=== PATIENT | female | born 1970 | race Caucasian/White ===

== ENCOUNTER → 2021-03-13 | Outpatient (CLI) | payer BC ==
[2021-03-13 16:06] VITALS: BP 169/94; PULSE 93; RESP 18; TEMP 98.2; BMI 39.8
--- NOTE | 2021-03-13 16:15 | P.HPBAR ---
Bariatric H&P - History & Physicial H&P Date: 03/13/21 History & Physicial: Visit/CC: initial visit Patient initial contact: Initial weight: Initial weight in pounds: Height: 5 ft 4.25 in Initial BMI: Last weight: Current weight: 106.141 kg Current weight in pounds: 234.00 Current BMI: 39.8 [place] body weight (based on NIH guidelines): 54.998 kg Excess body weight loss: The patient is a 50 year-old F who presents for Bariatric Assessment. DATE OF SERVICE: 03/13/2021 REASON FOR CONSULTATION: Initial bariatric evaluation. HISTORY OF PRESENT ILLNESS: Lindsey Celaya is a 50-year-old female who comes with lifelong morbid obesity. She comes in for weight loss surgery. She reports gastroesophageal reflux disease including over the counter medications for at least 1 year. Her medications help but her symptoms recur after stopping her medications. She has tried Weight watchers in 1999. She had the lap band by Dr. Be that was removed in 2018 with her gallbladder. She developed reflux disease after her band. She did not have reflux before the band. Her lowest hemant ght with the band was 180 pounds. Highest weight was 245 pounds. All of her family members have trouble with her weight and obesity. She is due for her colonoscopy for screening. She has not had an upper endoscopy. She denies colon cancer or polyps in her family. She ambulates with a cane and reports nerve damage of the knees with weakness. She had transverse myelitis, 1995. She denies easy bruising or bleeding. She denies DVTs. No inflammatory bowel disease in the family. No report of food allergies. At height of 5 feet 4.25 inches, her ideal body weight is 144 pounds. Her highest weight was 245 pounds, BMI 41.8. She comes in 234 pounds. Her body mass index is 39.9. She is 90 pounds overweight. PAST MEDICAL HISTORY: 1. Morbid obesity due to excess calories 2. Body mass index of 41.8, initial 3. Gastroesophageal reflux disease 4. Hypertensive heart disease 5. Transverse myelitis 6. Chronic kidney disease, stage 2 PAST SURGICAL HISTORY: 1. Bilateral foot surgery 2. Right ankle surgery 3. Lap band placement, 1999 with removal 2018 4. Fatty tumor removal 5. Cholecystectomy HOME MEDICATIONS: Home Medications Medication Instructions Recorded Confirmed Esomeprazole Magnesium [NexIUM] 20 mg PO HS 01/09/21 05/01/21 Lisinopril [Prinivil] 40 mg PO HS 01/09/21 05/01/21 Multivitamins, Thera [Multivitamin 1 tab PO DAILY 01/09/21 05/01/21 (formulary)] Zinc 50 mg PO DAILY 03/13/21 05/01/21 amLODIPine [Norvasc] 5 mg PO HS 03/13/21 05/01/21 Cholecalciferol [Vitamin D3 (25 25 mcg PO DAILY 04/24/21 05/01/21 Mcg = 1000 Iu)] Previous Rx's Medication Instructions Recorded Omeprazole [PriLOSEC] 40 mg PO DAILY #14 cap 04/29/21 ALLERGIES: Allergies Allergy/AdvReac Type Severity Reaction Status Date / Time Tetanus Vaccines and Toxoid Allergy Anaphylaxis Verified 05/01/21 14:08 SOCIAL HISTORY: Denies past tobacco use. FAMILY HISTORY: No family history of ulcerative colitis disease or Crohn's disease. Family history of morbid obesity. No lupus in the family. No reports of stomach or esophageal cancer. REVIEW OF ORGAN SYSTEMS: CONSTITUTIONAL: At height of 5 feet 4.25 inches, her ideal body weight is 144 pounds. Her highest weight was 245 pounds, BMI 41.8. She comes in 234 pounds. Her body mass index is 39.9. She is 90 pounds overweight. HEENT: Denies any active troubles with vision or hearing. ENDOCRINE: Denies diabetes. No hypothyroidism. CARDIOVASCULAR: Denies past reports of palpitations or heart attacks or chest pain. Has hypertensive heart disease. RESPIRATORY: Denies chronic obstructive pulmonary disease. GASTROINTESTINAL: Denies any bright red blood per rectum. No diarrhea. No constipation. Has gastroesophageal reflux disease. GENITOURINARY: Denies bladder urgency. No recent blood in urine MUSCULOSKELETAL: Has lower back pain and joint pain. NEURO: No headaches. No seizure disorders. Has lower extremity weakness. PSYCH: Denies depression. No suicidal ideation. RHEUMATOLOGIC: No lupus. No rheumatoid arthritis. HEMATOLOGIC: Denies any abnormal bleeding or bruising. SKIN: No rash. No skin cancer. PHYSICAL EXAM: VITAL SIGNS: Height 5 foot 4.25 inches, weight 234 pounds. BMI 39.9 Vital Signs Temp 98.2 F 03/13/21 15:42 Pulse 93 03/13/21 15:42 Resp 18 03/13/21 15:42 BP 169/94 03/13/21 15:42 Pulse Ox GENERAL: Well-developed in no acute distress. HEENT: No scleral icterus. Extraocular movements grossly intact. Hears conversational speech. No nasal drainage. NECK: Supple without lymphadenopathy. CHEST: Nonlabored respirations with equal bilateral excursions. CARDIOVASCULAR: Regular rate and regular rhythm. Distal 2+ pulses. ABDOMEN: Obese, soft, nontender, nondistended. MUSCULOSKELETAL: No clubbing, cyanosis. NEURO: No focal or lateralizing signs. Cranial nerves 2 through 12 grossly within normal limits. PSYCH: Appropriate affect. Alert and oriented to person, place and time. SKIN: Good skin turgor. Well perfused. ASSESSMENT: 1. Morbid obesity due to excess calories 2. Body mass index of 41.8, initial to 39.9 3. Gastroesophageal reflux disease 4. Hypertensive heart disease 5. Transverse myelitis 6. Chronic kidney disease, stage 2 7. Screening for malignant colon polyps PLAN: 1. Surgical options including gastric bypass, sleeve gastrectomy were described in detail. Alternatives such as gastric balloon including duodenal switch were described. She is looking into the gastric bypass. 2. The [place] bariatric surgical collaborative data and outcomes calculator were described with surgical options. 3. Recommend a bariatric metabolic panel to evaluate for micro- including macronutrient deficiencies. 4. For history of daytime somnolence, recommend evaluation and treatment for sleep apnea. 5. Dietary surveillance and counseling was reviewed. Increased protein intake over 65 grams daily advised. 6. Will need cardiac risk assessment. 7. Recommend medical risk assessment. 8. Psych assessment per insurance guidelines. 9. Recommend upper endoscopy. 10. Recommend 12-lead EKG. 11. Recommend esophagram 12. Recommend urine drug screen 13. Recommend colonoscopy for screening. Thank you for this consultation. Past Medical History Past Medical History: GERD/Reflux, Hypertension, Osteoarthritis (OA) Additional Past Medical History / Comment(s): transverse mylitis. nerve damage. weakness. gait disturbances. uses a walker. chronic intermittent catheter use. CKD stage 2 History of Any Multi-Drug Resistant Organisms: None Reported Past Surgical History: Bariatric Surgery, Cholecystectomy, Orthopedic Surgery Additional Past Surgical History / Comment(s): bilateral foot surgery right ankle surgery lap band 2000 lap band removal 2019. jaw surgery. fatty tumor removal right wrist. Past Anesthesia/Blood Transfusion Reactions: No Reported Reaction Past Psychological History: No Psychological Hx Reported Smoking Status: Never smoker Past Alcohol Use History: Rare Past Drug Use History: None Reported Surgical - Exam Vital Signs Temp Pulse Resp BP 98.2 F 93 18 169/94 03/13/21 15:42 03/13/21 15:42 03/13/21 15:42 03/13/21 15:42 Bariatric Checklist Checklist: Plan: Checklist: EGD: 1. Hiatal hernia: 2. H. Pylori: HgbA1c: Vitamin D: Smoking: Primary care physician referral: Dr. Smith ([facility]) Psychiatry clearance: Cardiology clearance: Sleep study: Diet journal: VTE risk score: VTE risk level: Rehab needs at discharge:
== END ==
LOC: BARWHC3 14:44
PROVIDERS: ATTEND Surgery Plastic and Reconstructive Surgery
DX: E66.01 Morbid (severe) obesity due to excess calories (principal); K21.9 Gastro-esophageal reflux disease without esophagitis; I11.9 Hypertensive heart disease without heart failure; N18.2 Chronic kidney disease, stage 2 (mild); G37.3 Acute transverse myelitis in demyelinating disease of central nervous system; Z12.11 Encounter for screening for malignant neoplasm of colon; M19.90 Unspecified osteoarthritis, unspecified site; Z68.39 Body mass index [BMI] 39.0-39.9, adult; Z88.7 Allergy status to serum and vaccine
CPT/HCPCS: 99203

== ENCOUNTER → 2021-03-15 | Outpatient (CLI) | payer BC ==
[2021-03-15 23:46] LABS: HCT 36.5 % (37.2-46.3); HGB 11.7 g/dL (12.0-15.0); MCH 30.5 pg (27.0-32.0); MCHC 32.1 g/dL (32.0-37.0); MCV 95.3 fL (80.0-97.0); Mean Platelet Volume 11.7 fL (9.5-12.2); Platelet Count 345 X 10*3/uL (140-440); RBC 3.83 X 10*6/uL (4.10-5.20); RDW 13.2 % (11.5-14.5)
[2021-03-16 01:52] LABS: % Iron Saturation 14.33 (12.00-45.00); ALT 25 U/L (8-44); AST 17 U/L (13-35); African American GFR (CKD) 99.6 (60.0-200.0); Albumin/Globulin Ratio 2.04 (1.60-3.17); Alkaline Phosphatase 100 U/L (41-126); BUN/Creat Ratio 31.25 Ratio (12.00-20.00); Calcium 9.6 mg/dL (8.7-10.3); Carbon Dioxide 27.5 mmol/L (21.6-31.8); Chloride 109 mmol/L (96-109); Chol/HDL Ratio 3.16; Cholesterol 180 mg/dL (0-200); Globulin 2.4 g/dL (1.6-3.3); Glucose 137 mg/dL (70-110); Iron 51 ug/dL (50-170); LDL Cholesterol,Calculated 91.8 mg/dL (0.0-131.0); Magnesium 1.9 mg/dL (1.5-2.4); Phosphorus 4.1 mg/dL (2.4-5.1); Sodium 143 mmol/L (135-145); Total Bilirubin 0.4 mg/dL (0.3-1.2); Total Iron Binding Capacity 356 ug/dL (228-460); Total Protein 7.3 g/dL (6.2-8.2)
[2021-03-16 02:03] LABS: Ferritin 51.1 ng/mL (10.0-291.0)
[2021-03-16 02:18] LABS: INR 0.89 (0.90-1.11); Partial Thromboplastin Time 22.8 sec (23.5-31.0); Prothrombin Time 9.8 sec (9.9-11.9)
[2021-03-16 02:21] LABS: Folate, Serum >24.0 ng/mL
[2021-03-16 04:19] LABS: Hemoglobin A1C 5.5 % (4.0-6.0)
== END | disposition home or self-care (01) ==
LOC: LABWHC1 15:38
PROVIDERS: ATTEND Surgery Plastic and Reconstructive Surgery
DX: E66.01 Morbid (severe) obesity due to excess calories (principal); E89.1 Postprocedural hypoinsulinemia; D50.8 Other iron deficiency anemias; K90.89 Other intestinal malabsorption; E55.9 Vitamin D deficiency, unspecified; K74.1 Hepatic sclerosis; N19 Unspecified kidney failure; K50.90 Crohn's disease, unspecified, without complications; Z98.84 Bariatric surgery status; Z71.51 Drug abuse counseling and surveillance of drug abuser
CPT/HCPCS: 36415; 80053; 80061; 80323; 82306; 82525; 82607; 82728; 82746; 83036; 83540; 83550; 83735; 83970; 84100; 84134; 84255; 84425; 84443; 84590; 84630; 85027; 85610; 85730

== ENCOUNTER 2021-04-29 07:23 | Day surgery (SDC) | payer BC ==
[2021-04-24 13:35] VITALS: BMI 39.9
[~2021-04-29 07:23] MED LIST: LACTATED RINGERS 1,000 ML IV SCH
--- NOTE | 2021-04-29 07:42 | P.GSHP ---
History of Present Illness H&P Date: 04/29/21 CHIEF COMPLAINT: GERD HISTORY OF PRESENT ILLNESS: The patient is a 50-year-old female who presents reports gastroesophageal reflux disease. Upper endoscopy was offered for further evaluation and management. PAST MEDICAL HISTORY: Please see list. PAST SURGICAL HISTORY: Please see list. MEDICATIONS: Please see list. ALLERGIES: Please see list. SOCIAL HISTORY: No illicit drug use FAMILY HISTORY: No reports of Crohn disease or ulcerative colitis. REVIEW OF ORGAN SYSTEMS: CONSTITUTIONAL: No reports of fevers or chills. GI: Denies any blood in stools or constipation. PHYSICAL EXAM: VITAL SIGNS: Stable GENERAL: Well-developed and pleasant in no acute distress. HEENT: No scleral icterus. Extraocular movements grossly intact. Moist buccal mucosa. NECK: Supple without lymphadenopathy. CHEST: Unlabored respirations. Equal bilateral excursions. CARDIOVASCULAR: Regular rate and rhythm. Distal 2+ pulses. ABDOMEN: Soft, nondistended. MUSCULOSKELETAL: No clubbing, cyanosis, or edema. ASSESSMENT: 1. Gastroesophageal reflux disease PLAN: 1. Recommend proceeding with an upper endoscopy Past Medical History Past Medical History: GERD/Reflux, Hypertension, Osteoarthritis (OA) Additional Past Medical History / Comment(s): transverse mylitis. nerve damage. weakness. gait disturbances. uses a walker. chronic intermittent straight catheter use. CKD stage 2 History of Any Multi-Drug Resistant Organisms: None Reported Past Surgical History: Bariatric Surgery, Cholecystectomy, Orthopedic Surgery Additional Past Surgical History / Comment(s): bilateral foot surgery right ankle surgery lap band 2000 lap band removal 2019. jaw surgery. fatty tumor removal right wrist. Past Anesthesia/Blood Transfusion Reactions: No Reported Reaction Smoking Status: Never smoker - Past Family History Mother Family Medical History: No Reported History Medications and Allergies Home Medications Medication Instructions Recorded Confirmed Type Esomeprazole Magnesium [NexIUM] 20 mg PO HS 01/09/21 04/24/21 History Lisinopril [Prinivil] 40 mg PO HS 01/09/21 04/24/21 History Multivitamins, Thera [Multivitamin 1 tab PO DAILY 01/09/21 04/24/21 History (formulary)] Zinc 50 mg PO DAILY 03/13/21 04/24/21 History amLODIPine [Norvasc] 5 mg PO HS 03/13/21 04/24/21 History Cholecalciferol [Vitamin D3 (25 25 mcg PO DAILY 04/24/21 04/24/21 History Mcg = 1000 Iu)] Allergies Allergy/AdvReac Type Severity Reaction Status Date / Time Tetanus Vaccines and Toxoid Allergy Anaphylaxis Verified 04/24/21 13:18
[2021-04-29 07:54] VITALS: TEMP 98.4
[2021-04-29] MEDS ORDERED: LIDOCAINE 1% (10MG/ML) FOR IV START INTRADERMA ONE (07:58)
[2021-04-29] MEDS ORDERED: PROPOFOL 10 MG/ML 20 ML VIAL IV ONE (08:19)
[2021-04-29] MEDS ORDERED: GLYCOPYRROLATE 0.2 MG/ML 2 ML VIAL ONE (08:19)
[2021-04-29] MEDS ORDERED: LIDOCAINE 1% INJ 10MG/ML (20 ML MDV) ONE (08:19)
[2021-04-29] MEDS ORDERED: KETAMINE 10 MG/ML 20 ML VIAL ONE (08:19)
--- NOTE | 2021-04-29 08:36 | P.PCN ---
Date of Procedure: 04/29/21 Description of Procedure: PREOPERATIVE DIAGNOSIS: Gastroesophageal reflux disease. Morbid obesity. POSTOPERATIVE DIAGNOSIS: Morbid obesity. Gastritis. Gastroesophageal reflux disease. Diaphragmatic hiatal hernia OPERATION: Esophagogastroduodenoscopy with biopsies along antrum. SURGEON: Kaylin Lucio MD ANESTHESIA: MAC. INDICATIONS: The patient is a 50-year-old female who presents with a history of reflux disease. Benefits and risks of the procedure were described. Informed consent was obtained. DESCRIPTION: The patient was brought into the endoscopy suite and laid in the left lateral decubitus position. An Olympus gastroscope was passed along the posterior oropharynx down to the distal esophagus where the squamocolumnar junction was encountered at 35 cm from the incisors. The stomach was entered and no bile reflux was found. Additional findings are listed below. Biopsies with cold f orceps were obtained of the antrum. The first through third portion of the duodenum was examined and unremarkable. Retroflexion of the scope confirmed Hill grade 3 lower esophageal valve. The squamocolumnar junction demonstrated LA grade B erosive esophagitis. The stomach was desufflated. The patient tolerated the procedure well. FINDINGS: Squamocolumnar junction 35 cm from the incisors. Diaphragmatic hiatus at 40 cm. Hiatal hernia, 5 cm Hill grade 3 lower esophageal valve. LA grade B erosive esophagitis. No active duodenitis. Chronic gastritis RECOMMENDATIONS: Upper endoscopy as needed. Plan - Discharge Summary Discharge Rx Participant: No New Discharge Prescriptions: Continue Lisinopril [Prinivil] 40 mg PO HS Esomeprazole Magnesium [NexIUM] 20 mg PO HS Multivitamins, Thera [Multivitamin (formulary)] 1 tab PO DAILY amLODIPine [Norvasc] 5 mg PO HS Zinc 50 mg PO DAILY Cholecalciferol [Vitamin D3 (25 Mcg = 1000 Iu)] 25 mcg PO DAILY Discharge Medication List Esomeprazole Magnesium [NexIUM] 20 mg PO HS 01/09/21 [History] Lisinopril [Prinivil] 40 mg PO HS 01/09/21 [History] Multivitamins, Thera [Multivitamin (formulary)] 1 tab PO DAILY 01/09/21 [History] Zinc 50 mg PO DAILY 03/13/21 [History] amLODIPine [Norvasc] 5 mg PO HS 03/13/21 [History] Cholecalciferol [Vitamin D3 (25 Mcg = 1000 Iu)] 25 mcg PO DAILY 04/24/21 [History] Follow up Appointment(s)/Referral(s): [facility] [[facility]-STAFF] - 05/15/21 Patient Instructions/Handouts: Diet for Stomach Ulcers and Gastritis (GEN), Hiatal Hernia (DC) Discharge Disposition: HOME SELF-CARE
[2021-04-29 08:54] VITALS: BP 115/79; PULSE 78; RESP 17
== END 2021-04-29 09:22 | disposition home or self-care (01) ==
LOC: ORWHC2ENDO 07:23
PROVIDERS: ATTEND Surgery Plastic and Reconstructive Surgery
DX: K31.9 Disease of stomach and duodenum, unspecified (principal); K44.9 Diaphragmatic hernia without obstruction or gangrene; K21.9 Gastro-esophageal reflux disease without esophagitis; I12.9 Hypertensive chronic kidney disease with stage 1 through stage 4 chronic kidney disease, or unspecified chronic kidney disease; N18.2 Chronic kidney disease, stage 2 (mild); E66.01 Morbid (severe) obesity due to excess calories; Z68.38 Body mass index [BMI] 38.0-38.9, adult; M19.90 Unspecified osteoarthritis, unspecified site; G37.3 Acute transverse myelitis in demyelinating disease of central nervous system; R26.9 Unspecified abnormalities of gait and mobility; Z98.84 Bariatric surgery status; Z90.49 Acquired absence of other specified parts of digestive tract; Z98.890 Other specified postprocedural states; Z79.899 Other long term (current) drug therapy; Z88.8 Allergy status to other drugs, medicaments and biological substances
CPT/HCPCS: 88305; 43239; J2001; J2704

== ENCOUNTER → 2021-05-01 | Outpatient (CLI) | payer BC | END | disposition home or self-care (01) | LOC: LABPAT 14:27 | PROVIDERS: ATTEND Surgery Plastic and Reconstructive Surgery | DX: Z01.818 Encounter for other preprocedural examination (principal) | CPT/HCPCS: 93005 ==

== ENCOUNTER → 2021-05-01 | Outpatient (CLI) | payer BC ==
[2021-05-01 14:05] VITALS: BP 153/81; PULSE 93; RESP 16; TEMP 98.5; BMI 39.8
--- NOTE | 2021-05-01 14:20 | P.PN ---
Subjective Progress Note Date: 05/01/21 DATE OF SERVICE: 05/01/2021 CHIEF COMPLAINT: Morbid obesity. HISTORY OF PRESENT ILLNESS: Lindsey Celaya is a 50-year-old female with lifelong morbid obesity. She has prior history of an adjustable gastric band with removal. As a result of her morbid obesity, she has developed hypertensive heart disease and osteoarthritis of the bilateral feet and ankle. She is in medical supervised weight loss. She has completed an upper endoscopy. She presents today for management of her morbid obesity. At height of 5 feet 4.25 inches, her ideal body weight is 144 pounds. Her highest weight was 245 pounds, BMI 41.8. She comes in 234 pounds, unchanged from 1 month ago. Her body mass index is 39.9. She is 90 pounds overweight. PAST MEDICAL HISTORY: 1. Morbid obesity due to excess calories 2. Body mass index of 41.8, initial 3. Gastroesophageal reflux disease 4. Hypertensive heart disease 5. Transverse myelitis 6. Chronic kidney disease, stage 2 7. Osteoarthritis bilateral feet 8. Osteoarthritis of the ankle, right. 9. Hypertensive heart disease PAST SURGICAL HISTORY: 1. Bilateral foot surgery 2. Right ankle surgery 3. Lap band placement, 1999 with removal 2018 4. Fatty tumor removal 5. Cholecystectomy HOME MEDICATIONS: Home Medications Medication Instructions Recorded Confirmed Esomeprazole Magnesium [NexIUM] 20 mg PO HS 01/09/21 05/01/21 Lisinopril [Prinivil] 40 mg PO HS 01/09/21 05/01/21 Multivitamins, Thera [Multivitamin 1 tab PO DAILY 01/09/21 05/01/21 (formulary)] Zinc 50 mg PO DAILY 03/13/21 05/01/21 amLODIPine [Norvasc] 5 mg PO HS 03/13/21 05/01/21 Cholecalciferol [Vitamin D3 (25 25 mcg PO DAILY 04/24/21 05/01/21 Mcg = 1000 Iu)] Previous Rx's Medication Instructions Recorded Omeprazole [PriLOSEC] 40 mg PO DAILY #14 cap 04/29/21 ALLERGIES: Allergies Allergy/AdvReac Type Severity Reaction Status Date / Time Tetanus Vaccines and Toxoid Allergy Anaphylaxis Verified 05/01/21 14:08 SOCIAL HISTORY: Denies past tobacco use. FAMILY HISTORY: No family history of ulcerative colitis disease or Crohn's disease. Family history of morbid obesity. No lupus in the family. No reports of stomach or esophageal cancer. REVIEW OF ORGAN SYSTEMS: CONSTITUTIONAL: At height of 5 feet 4.25 inches, her ideal body weight is 144 pounds. Her highest weight was 245 pounds, BMI 41.8. She comes in 234 pounds. Her body mass index is 39.9. She is 90 pounds overweight. HEENT: Denies any active troubles with vision or hearing. ENDOCRINE: Denies diabetes. No hypothyroidism. CARDIOVASCULAR: Denies past reports of palpitations or heart attacks or chest pain. Has hypertensive heart disease. RESPIRATORY: Denies chronic obstructive pulmonary disease. GASTROINTESTINAL: Denies any bright red blood per rectum. No diarrhea. No constipation. Has gastroesophageal reflux disease. GENITOURINARY: Denies bladder urgency. No recent blood in urine MUSCULOSKELETAL: Has lower back pain and joint pain. NEURO: No headaches. No seizure disorders. Has lower extremity weakness. PSYCH: Denies depression. No suicidal ideation. RHEUMATOLOGIC: No lupus. No rheumatoid arthritis. HEMATOLOGIC: Denies any abnormal bleeding or bruising. SKIN: No rash. No skin cancer. PHYSICAL EXAM: VITAL SIGNS: Height 5 foot 4.25 inches, weight 234 pounds. BMI 39.9 Vital Signs Temp 98.5 F 05/01/21 14:02 Pulse 93 05/01/21 14:02 Resp 16 05/01/21 14:02 BP 153/81 05/01/21 14:02 Pulse Ox GENERAL: Well-developed in no acute distress. HEENT: No scleral icterus. Extraocular movements grossly intact. Hears conversational speech. No nasal drainage. NECK: Supple without lymphadenopathy. CHEST: Nonlabored respirations with equal bilateral excursions. CARDIOVASCULAR: Regular rate and regular rhythm. Distal 2+ pulses. ABDOMEN: Obese, soft, nontender, nondistended. MUSCULOSKELETAL: No clubbing, cyanosis. NEURO: No focal or lateralizing signs. Cranial nerves 2 through 12 grossly within normal limits. PSYCH: Appropriate affect. Alert and oriented to person, place and time. SKIN: Good skin turgor. Well perfused. LABS: Reviewed. WBC elevated. Hgb low. Triglycerides elevated. Selenium elevated. Creatinine normal 0.8. No vitamin deficiences. Urine nicotine negative. EGD FINDINGS: Squamocolumnar junction 35 cm from the incisors. Diaphragmatic hiatus at 40 cm. Hiatal hernia, 5 cm Hill grade 3 lower esophageal valve. LA grade B erosive esophagitis. No active duodenitis. Chronic gastritis Final Pathologic Diagnosis GASTRIC ANTRUM, BIOPSY: Reactive gastropathy. Helicobacter pylori organisms are not identified on routine H+E sections. ASSESSMENT: 1. Morbid obesity due to excess calories 2. Body mass index of 41.8, initial to 39.9 3. Gastroesophageal reflux disease 4. Hypertensive heart disease 5. Transverse myelitis 6. Chronic kidney disease, stage 2 7. Osteoarthritis bilateral feet 8. Osteoarthritis of the ankle, right. 9. Hypertensive heart disease 10. Hiatal hernia. 11. Hypertriglyceridemia 12. Leukocytosis 13. Anemia 14. Elevated selenium 15. Status adjustable gastric band removal PLAN: 1. Her EGD was reveiwed with and she has a hiatal hernia. At this time, she is open to gastrectomy procedures. 2. Recommend EKG for cardiac risk assessment and hypertensive heart disease. 3. Recommend esophogram for type of hiatal hernia, sliding type or fixed. 4. Continue medical supervised weight loss. Objective - Vital Signs Vital signs: Vital Signs Temp 98.5 F 05/01/21 14:02 Pulse 93 05/01/21 14:02 Resp 16 05/01/21 14:02 BP 153/81 05/01/21 14:02 Pulse Ox Intake & Output 04/30/21 05/01/21 05/01/21 18:59 06:59 18:59 Weight 106.141 kg
== END | disposition home or self-care (01) ==
LOC: BARWHC3 13:53
PROVIDERS: ATTEND Surgery Plastic and Reconstructive Surgery
DX: E66.01 Morbid (severe) obesity due to excess calories (principal); K21.9 Gastro-esophageal reflux disease without esophagitis; I11.9 Hypertensive heart disease without heart failure; G37.3 Acute transverse myelitis in demyelinating disease of central nervous system; N18.2 Chronic kidney disease, stage 2 (mild); M19.071 Primary osteoarthritis, right ankle and foot; M19.072 Primary osteoarthritis, left ankle and foot; I12.9 Hypertensive chronic kidney disease with stage 1 through stage 4 chronic kidney disease, or unspecified chronic kidney disease; Z68.41 Body mass index [BMI] 40.0-44.9, adult
CPT/HCPCS: 99211

== ENCOUNTER → 2021-05-13 | Outpatient (CLI) | payer BC ==
--- NOTE | 2021-05-13 10:50 | FL ---
ESOPHOGRAM. HISTORY: Dysphagia Esophagram was performed per the air contrast technique. The patient swallowed barium and effervesce nt crystals without difficulty or delay. Esophageal peristalsis and motility appear to be within normal limits. There is no evidence for filling defect, mass or diverticulum. No hiatal hernia seen. Subsequently single contrast cervical esophagram was performed which fails demonstrate evidence for a spiration penetration or mass. IMPRESSION: Unremarkable study.
== END ==
LOC: RADUSWWP 09:48
PROVIDERS: ATTEND Surgery Plastic and Reconstructive Surgery
DX: R13.10 Dysphagia, unspecified (principal)
CPT/HCPCS: 74220

== ENCOUNTER → 2021-06-17 | Outpatient (CLI) | payer BC ==
[2021-06-17 11:35] VITALS: BMI 40.9
== END | disposition home or self-care (01) ==
LOC: BARWHC3 08:44
PROVIDERS: ATTEND Surgery Plastic and Reconstructive Surgery
DX: E66.01 Morbid (severe) obesity due to excess calories (principal); Z71.3 Dietary counseling and surveillance; Z68.41 Body mass index [BMI] 40.0-44.9, adult
CPT/HCPCS: 97803

== ENCOUNTER → 2021-08-23 | Outpatient (CLI) | payer BC ==
[2021-08-23 12:49] LABS: Basophils # (A) 0.1 k/uL (0-0.2); Basophils % (A) 1 %; Eosinophils # (A) 0.2 k/uL (0-0.7); Eosinophils % (A) 2 %; Lymphocytes # (A) 2.1 k/uL (1.0-4.8); Lymphocytes % (A) 24 %; MCH 30.3 pg (25.0-35.0); MCHC 31.7 g/dL (31.0-37.0); MCV 95.5 fL (80.0-100.0); Mean Platelet Volume 8.4; Monocytes # (A) 0.4 k/uL (0-1.0); Monocytes % (A) 4 %; Neutrophils # (A) 5.8 k/uL (1.3-7.7); Neutrophils % (A) 67 %; Platelet Count 351 k/uL (150-450); WBC 8.6 k/uL (3.8-10.6)
[2021-08-23 13:00] LABS: ALT 32 U/L (4-34); AST 30 U/L (14-36); African American GFR (CKD) >90 (>60 ml/min/1.73 sqM); Albumin 4.7 g/dL (3.5-5.0); Alkaline Phosphatase 103 U/L (38-126); Anion Gap 11 mmol/L; Blood Urea Nitrogen 17 mg/dL (7-17); Calcium 10.3 mg/dL (8.4-10.2); Carbon Dioxide 25 mmol/L (22-30); Chloride 103 mmol/L (98-107); Glucose 103 mg/dL (74-99); Non-African American GFR(CKD) >90 (>60 ml/min/1.73 sqM); Potassium 4.9 mmol/L (3.5-5.1); Sodium 139 mmol/L (137-145); Total Bilirubin 0.7 mg/dL (0.2-1.3); Total Protein 7.9 g/dL (6.3-8.2)
== END | disposition home or self-care (01) ==
LOC: LABWHC1 11:02
PROVIDERS: ATTEND Surgery Plastic and Reconstructive Surgery
DX: Z01.812 Encounter for preprocedural laboratory examination (principal)
CPT/HCPCS: 36415; 80053; 85025

== ENCOUNTER 2021-08-26 09:20 | Inpatient (IN) | payer BC ==
[2021-08-22 11:27] VITALS: BMI 38.4
--- NOTE | 2021-08-26 07:52 | P.GSHP ---
History of Present Illness H&P Date: 08/26/21 CHIEF COMPLAINT: Morbid obesity. HISTORY OF PRESENT ILLNESS: Lindsey Celaya is a 50-year-old female with lifelong morbid obesity. She has prior history of an adjustable gastric band with removal. As a result of her morbid obesity, she has developed hypertensive heart disease and osteoarthritis of the bilateral feet and ankle. She presents today for management of her morbid obesity. She is looking into the gastric bypass. At height of 5 feet 4.25 inches, her ideal body weight is 144 pounds. Her highest weight was 245 pounds, BMI 41.8. She comes in 234 pounds, unchanged from 1 month ago. Her body mass index is 39.9. She is 90 pounds overweight. PAST MEDICAL HISTORY: 1. Morbid obesity due to excess calories 2. Body mass index of 41.8, initial 3. Gastroesophageal reflux disease 4. Hypertensive heart disease 5. Transverse myelitis 6. Chronic kidney disease, stage 2 7. Osteoarthritis bilateral feet 8. Osteoarthritis of the ankle, right. 9. Hypertensive heart disease PAST SURGICAL HISTORY: 1. Bilateral foot surgery 2. Right ankle surgery 3. Lap band placement, 1999 with removal 2018 4. Fatty tumor removal 5. Cholecystectomy HOME MEDICATIONS: Home Medications Medication Instructions Recorded Confirmed Esomeprazole Magnesium [NexIUM] 20 mg PO HS 01/09/21 05/01/21 Lisinopril [Prinivil] 40 mg PO HS 01/09/21 05/01/21 Multivitamins, Thera [Multivitamin 1 tab PO DAILY 01/09/21 05/01/21 (formulary)] Zinc 50 mg PO DAILY 03/13/21 05/01/21 amLODIPine [Norvasc] 5 mg PO HS 03/13/21 05/01/21 Cholecalciferol [Vitamin D3 (25 25 mcg PO DAILY 04/24/21 05/01/21 Mcg = 1000 Iu)] Previous Rx's Medication Instructions Recorded Omeprazole [PriLOSEC] 40 mg PO DAILY #14 cap 04/29/21 ALLERGIES: Allergies Allergy/AdvReac Type Severity Reaction Status Date / Time Tetanus Vaccines and Toxoid Allergy Anaphylaxis Verified 05/01/21 14:08 SOCIAL HISTORY: Denies past tobacco use. FAMILY HISTORY: No family history of ulcerative colitis disease or Crohn's disease. Family history of morbid obesity. No lupus in the family. No reports of stomach or esophageal cancer. REVIEW OF ORGAN SYSTEMS: CONSTITUTIONAL: At height of 5 feet 4.25 inches, her ideal body weight is 144 pounds. Her highest weight was 245 pounds, BMI 41.8. She comes in 234 pounds. Her body mass index is 39.9. She is 90 pounds overweight. HEENT: Denies any active troubles with vision or hearing. ENDOCRINE: Denies diabetes. No hypothyroidism. CARDIOVASCULAR: Denies past reports of palpitations or heart attacks or chest pain. Has hypertensive heart disease. RESPIRATORY: Denies chronic obstructive pulmonary disease. GASTROINTESTINAL: Denies any bright red blood per rectum. No diarrhea. No constipation. Has gastroesophageal reflux disease. GENITOURINARY: Denies bladder urgency. No recent blood in urine MUSCULOSKELETAL: Has lower back pain and joint pain. NEURO: No headaches. No seizure disorders. Has lower extremity weakness. PSYCH: Denies depression. No suicidal ideation. RHEUMATOLOGIC: No lupus. No rheumatoid arthritis. HEMATOLOGIC: Denies any abnormal bleeding or bruising. SKIN: No rash. No skin cancer. PHYSICAL EXAM: VITAL SIGNS: Height 5 foot 4.25 inches, weight 234 pounds. BMI 39.9 GENERAL: Well-developed in no acute distress. HEENT: No scleral icterus. Extraocular movements grossly intact. Hears conversational speech. No nasal drainage. NECK: Supple without lymphadenopathy. CHEST: Nonlabored respirations with equal bilateral excursions. CARDIOVASCULAR: Regular rate and regular rhythm. Distal 2+ pulses. ABDOMEN: Obese, soft, nontender, nondistended. MUSCULOSKELETAL: No clubbing, cyanosis. NEURO: No focal or lateralizing signs. Cranial nerves 2 through 12 grossly within normal limits. PSYCH: Appropriate affect. Alert and oriented to person, place and time. SKIN: Good skin turgor. Well perfused. ASSESSMENT: 1. Morbid obesity due to excess calories 2. Body mass index of 41.8, initial to 39.9 3. Gastroesophageal reflux disease 4. Hypertensive heart disease 5. Transverse myelitis 6. Chronic kidney disease, stage 2 7. Osteoarthritis bilateral feet 8. Osteoarthritis of the ankle, right. 9. Hypertensive heart disease 10. Hiatal hernia. 11. Hypertriglyceridemia 12. Leukocytosis 13. Anemia 14. Elevated selenium 15. Status adjustable gastric band removal PLAN: 1. Bariatric options between a sleeve, band and a Darya-en-Y gastric bypass were reviewed in detail. The patient elected for a gastric bypass. Robotic assisted approach described. 2. The [place] [facility] Data was also reviewed with benefits and risks as described. 3. An 8 page second-generation bariatric consent form was reviewed in detail including potential of bleeding, infection, leaks, adequate weight loss, nutritional deficiencies which the patient demonstrated understanding of the risks. 4. A 2 week high-protein low caloric 800 kcal diet described to address hepatomegaly. 5. Preoperative labs including complete metabolic panel and CBC with type and screen recommended. 6. DVT prophylaxis per [place] [facility]. 7. Antibiotic prophylaxis. 8. Inpatient hospitalization anticipated for more than 2 nights. 9. All questions and concerns were addressed with the patient. 10. Overall, patient has expressed understanding of bariatric care including postoperative diet and commitment of lifestyle. Patient should benefit from surgical intervention for correction of her morbid obesity. Past Medical History Past Medical History: GERD/Reflux, Hypertension, Osteoarthritis (OA) Additional Past Medical History / Comment(s): hx. transverse myelitis-nerve damage, weakness. gait disturbances, uses a walker, bladder affected, daily self cath's, CKD stage 2 History of Any Multi-Drug Resistant Organisms: None Reported Past Surgical History: Bariatric Surgery, Cholecystectomy, Orthopedic Surgery Additional Past Surgical History / Comment(s): bilateral foot surgery right ankle surgery lap band 1999 lap band removal 2019. jaw surgery for overbite, fatty tumor removal right wrist. Past Anesthesia/Blood Transfusion Reactions: No Reported Reaction Smoking Status: Never smoker - Past Family History Mother Family Medical History: No Reported History Medications and Allergies Home Medications Medication Instructions Recorded Confirmed Type Esomeprazole Magnesium [NexIUM] 20 mg PO HS 01/09/21 08/22/21 History Lisinopril [Prinivil] 40 mg PO HS 01/09/21 08/22/21 History Multivitamins, Thera [Multivitamin 1 tab PO DAILY 01/09/21 08/22/21 History (formulary)] Zinc 50 mg PO DAILY 03/13/21 08/22/21 History amLODIPine [Norvasc] 5 mg PO HS 03/13/21 08/22/21 History Cholecalciferol [Vitamin D3 (25 25 mcg PO DAILY 04/24/21 08/22/21 History Mcg = 1000 Iu)] Allergies Allergy/AdvReac Type Severity Reaction Status Date / Time Tetanus Vaccines and Toxoid Allergy Anaphylaxis Verified 08/22/21 11:17
--- NOTE | 2021-08-26 08:02 | P.PCN ---
Date of Procedure: 08/26/21 Description of Procedure: PREOPERATIVE DIAGNOSIS: Gastroesophageal reflux disease. Morbid obesity. POSTOPERATIVE DIAGNOSIS: Morbid obesity. Gastritis. Gastroesophageal reflux disease. Gastric polyposis OPERATION: Esophagogastroduodenoscopy with biopsies along antrum. SURGEON: Kaylin Lucio MD ANESTHESIA: MAC. INDICATIONS: The patient is a 50-year-old female who presents with a history of reflux disease. Benefits and risks of the procedure were described. Informed consent was obtained. DESCRIPTION: The patient was brought into the endoscopy suite and laid in the left lateral decubitus position. An Olympus gastroscope was passed along the posterior oropharynx down to the distal esophagus where the squamocolumnar junction was encountered at 38 cm from the incisors. The stomach was entered and no bile reflux was found. Additional findings are listed below. Biopsies with cold forceps were obtained of the antrum. The first through third portion of the duodenum was examined and unremarkable. Retroflexion of the scope confirmed Hill grade 2 lower esophageal valve. The squamocolumnar junction demonstrated LA grade B erosive esophagitis. The stomach was desufflated. The patient tolerated the procedure well. FINDINGS: Squamocolumnar junction 38 cm from the incisors. Diaphragmatic hiatus at 38 cm. Hill grade 2 lower esophageal valve. LA grade B erosive esophagitis. No active duodenitis. Chronic gastritis Gastric polyps RECOMMENDATIONS: Upper endoscopy as needed. Plan - Discharge Summary Discharge Rx Participant: Yes New Discharge Prescriptions: Continue Lisinopril [Prinivil] 40 mg PO HS Esomeprazole Magnesium [NexIUM] 20 mg PO HS Multivitamins, Thera [Multivitamin (formulary)] 1 tab PO DAILY amLODIPine [Norvasc] 5 mg PO HS Zinc 50 mg PO DAILY Cholecalciferol [Vitamin D3 (25 Mcg = 1000 Iu)] 25 mcg PO DAILY Discharge Medication List Esomeprazole Magnesium [NexIUM] 20 mg PO HS 01/09/21 [History] Lisinopril [Prinivil] 40 mg PO HS 01/09/21 [History] Multivitamins, Thera [Multivitamin (formulary)] 1 tab PO DAILY 01/09/21 [History] Zinc 50 mg PO DAILY 03/13/21 [History] amLODIPine [Norvasc] 5 mg PO HS 03/13/21 [History] Cholecalciferol [Vitamin D3 (25 Mcg = 1000 Iu)] 25 mcg PO DAILY 04/24/21 [History] Follow up [facility]ment(s[facility] [place] [facility] [place] [facility] Patient Instructions/Handouts: Gastritis (DC), Diet for Stomach Ulcers and Gastritis (GEN) Discharge Disposition: HOME SELF-CARE
[~2021-08-26 09:20] MED LIST changes: +CHLORHEXIDINE GLUCONATE 15 ML CUP MUCOUS MEM PRN; +ENOXAPARIN 40 MG/0.4 ML SYRINGE SQ PRN; -LACTATED RINGERS 1,000 ML IV SCH; +PANTOPRAZOLE 40 MG/10 ML VIAL IVP PRN
[2021-08-26] MEDS ORDERED: SCOPOLAMINE 1.5MG/72HR PATCH TRANSDERM ONE (10:06)
[2021-08-26] MEDS ORDERED: DEXAMETHASONE SOD PHOSPHATE 4 MG/ML 1 ML VIAL IV ONE (10:06)
[2021-08-26] MEDS ORDERED: ACETAMINOPHEN TAB 500 MG TAB PO STA (10:06)
[2021-08-26] MEDS ORDERED: ONDANSETRON 4 MG/2 ML VIAL IVP ONE (10:06)
[2021-08-26] MEDS ORDERED: MIDAZOLAM 2 MG/2 ML VIAL IV PRN (10:06)
[2021-08-26] MEDS ORDERED: LACTATED RINGERS 1,000 ML IV SCH (10:06)
[2021-08-26] MEDS ORDERED: GABAPENTIN 300 MG CAP PO STA (10:06)
[2021-08-26] MEDS ORDERED: SCOPOLAMINE 1.5MG/72HR PATCH TRANSDERM STA (10:06)
[2021-08-26] MEDS ORDERED: LIDOCAINE 1% (10MG/ML) FOR IV START INTRADERMA ONE (10:58)
[2021-08-26] MEDS ORDERED: fentaNYL (PF) 50 MCG/ML 2 ML AMP IVP ONE (11:04)
--- NOTE | 2021-08-26 11:18 | P.ANPRN ---
Procedure Note - Anesthesia - Nerve Block Performed Bilateral Erector Spinae Single Time Out Performed: Yes Date of Procedure: 08/26/21 Procedure Start Time: 11:02 Procedure Stop Time: 11:13 Location of Patient: PreOp Indication: Requested by Surgeon Sedation Type: Sedate with meaningful contact maintained Preparation: Sterile Prep Position: Prone Needle Types: Pajunk Needle Gauge: 21 Ultrasound used to visualize needle placement: Yes Injectate: 0.5% Ropivacaine (see comment for volume) (15 ml + lidocaine 2% with epi 10 ml per side) Blood Aspirated: No Pain Paresthesia on Injection Noted: No Resistance on Injection: Normal Image Stored and Saved: Yes Events: Uneventful and Well Tolerated
[2021-08-26] MEDS ORDERED: GLYCOPYRROLATE 0.2 MG/ML 2 ML VIAL ONE (12:07)
[2021-08-26] MEDS ORDERED: LIDOCAINE 1% INJ 10MG/ML (20 ML MDV) ONE (12:07)
[2021-08-26] MEDS ORDERED: LIDOCAINE 2%-EPI 1:100,000 20 ML VIAL ONE (12:07)
[2021-08-26] MEDS ORDERED: ROPIVACAINE 5 MG/ML 30 ML VIAL ONE (12:07)
[2021-08-26] MEDS ORDERED: PHENYLEPHRINE-0.9% NACL SYG 1,000 MCG/10 ML SYRINGE ONE (12:07)
[2021-08-26] MEDS ORDERED: PROPOFOL 10 MG/ML 20 ML VIAL IV ONE (12:07)
[2021-08-26] MEDS ORDERED: ROCURONIUM 10 MG/ML (5 ML VIAL) IV ONE (12:07)
[2021-08-26] MEDS ORDERED: SUCCINYLCHOLINE CHLORIDE 100 MG/5 ML SYR IV ONE (12:07)
[2021-08-26] MEDS ORDERED: NEOSTIGMINE 1 MG/ML 10 ML VIAL ONE (12:07)
[2021-08-26] MEDS ORDERED: MIDAZOLAM 2 MG/2 ML VIAL ONE (12:07)
[2021-08-26] MEDS ORDERED: fentaNYL (PF) 50 MCG/ML 2 ML AMP ONE (12:07)
[2021-08-26] MEDS ORDERED: LIDOCAINE 1%-EPI 1:100,000 20 ML VIAL SQ ONE (12:13)
[2021-08-26] MEDS ORDERED: LACTATED RINGERS 1,000 ML IV ONE (13:10)
--- NOTE | 2021-08-26 14:34 | XR ---
EXAMINATION TYPE: XR abdomen 1V DATE OF EXAM: 08/26/2021 COMPARISON: NONE HISTORY: Rule out intraoperative foreign body. Possible needle TECHNIQUE: Single supine KUB image of the abdomen is obtained FINDINGS: No radiopaque foreign body is not seen with certainty with the appearance of a needle. Laparoscopic d evices are noted to be in place. IMPRESSION: 1. No radiopaque foreign body seen.
[2021-08-26 14:55] VITALS: TEMP 97.5
[2021-08-26] MEDS: HYDROmorphone 0.5 MG/0.5 ML SYRINGE IVP PRN ×2 (15:00→15:17)
[2021-08-26 15:04] VITALS: RESP 16
--- NOTE | 2021-08-26 15:28 | XR ---
EXAMINATION TYPE: XR abdomen 1V DATE OF EXAM: 08/26/2021 COMPARISON: NONE HISTORY: MISSING NEEDLE ON OR COUNT TECHNIQUE: Single supine KUB image of the abdomen is obtained FINDINGS: No radiopaque needle identified with certainty. Cholecystectomy clips are in place. Bowel gas pattern is unremarkable. IMPRESSION: 1. No radiopaque needle identified with certainty.
[2021-08-26 16:19] VITALS: BP 119/74; PULSE 87
--- NOTE | 2021-08-28 21:36 | P.OP ---
Date of Procedure: 08/26/21 Description of Procedure: SURGEON: IVAN AGRAWAL MD PREOPERATIVE DIAGNOSES: 1. Morbid obesity due to excess calories 2. Body mass index of 41.8, initial to 39.9 3. Gastroesophageal reflux disease 4. Hypertensive heart disease 5. Transverse myelitis 6. Chronic kidney disease, stage 2 7. Osteoarthritis bilateral feet 8. Osteoarthritis of the ankle, right. 9. Hypertensive heart disease 10. Hiatal hernia. 11. Hypertriglyceridemia 12. Leukocytosis 13. Anemia 14. Elevated selenium 15. Status adjustable gastric band removal POSTOPERATIVE DIAGNOSES: 1. Morbid obesity due to excess calories 2. Body mass index of 41.8, initial to 39.9 3. Gastroesophageal reflux disease 4. Hypertensive heart disease 5. Transverse myelitis 6. Chronic kidney disease, stage 2 7. Osteoarthritis bilateral feet 8. Osteoarthritis of the ankle, right. 9. Hypertensive heart disease 10. Hiatal hernia. 11. Hypertriglyceridemia 12. Leukocytosis 13. Anemia 14. Elevated selenium 15. Status adjustable gastric band removal 16. Peritoneal adhesions pelvis, epigastrium. OPERATION: 1. Robotic assisted da Lashell Xi laparoscopic lysis of adhesions, pelvis, epigastrium 2. Aborted Robotic assisted da Lashell Xi laparoscopic Darya-en-Y gastric bypass ANESTHESIA: GETA and local ESTIMATED BLOOD LOSS: 5 mL SPECIMENS REMOVED: None. COMPLICATIONS: NONE. Operative Findings: 1. Dense pelvic adhesions involving descending colon and sigmoid colon to omentum requiring lysis of adhesions of the pelvis 2. Epigastric and perigastric adhesions of omentum from prior adjustable gastric band also sharply lysed 3. Sequential equipment failure prohibiting progression of gastric bypass and aborted after lysis of adhesions INDICATIONS: Lindsey Celaya is a 50-year-old female with lifelong morbid obesity. She has prior history of an adjustable gastric band with removal. As a result of her morbid obesity, she has developed hypertensive heart disease and osteoarthritis of the bilateral feet and ankle. She is looking into the gastric bypass. At height of 5 feet 4.25 inches, her ideal body weight is 144 pounds. Her highest weight was 245 pounds, BMI 41.8. She comes in 224 pounds from 234 pounds. A second-generation bariatric consent form was described in detail including the possibility of protein malnutrition, small bowel obstructions, leaks, gastrojejunal stricture, venous thrombosis, need for further surgery for which she demonstrated understanding. Benefits and risks of the procedure were described at length. Informed consent was obtained. DESCRIPTION: The patient was brought into the operating room theater. She was placed supine. She had received Lovenox subcutaneously for DVT prophylaxis. Additionally she Peridex oral solution as an oral decontaminant. After general induction, the abdomen was prepped and draped in standard sterile fashion. Ioban draping was placed along the abdomen. Hernandez catheter was placed A robotic da Lashell Xi system was prepped and primed. Incisions were proposed at 15 cm from the xiphoid. Proposed port sites were marked with indelible marker along the anterior axillary line bilaterally, mid clavicular line bilaterally with each port marked 10 cm from each other. The robotic stapler port was marked for the right midclavicular line including along the left midclavicular line. A 5 mm 0 degrees laparoscopic trocar entry was performed along the left upper quadrant. The abdomen was insufflated to 15 mmHg pressure, which she tolerated well. Diagnostic laparoscopy demonstrated no injury to bowel, viscera, or mesentery. The liver was consistent with her 2-week protein diet. An 8 mm camera port was placed left lateral to the umbilicus at the epigastrium, 15 cm distal to the xiphoid. Next, 12-mm robot stapler port was placed along the right mid abdomen. An 12 mm port was exchanged along the left upper quadrant. An 8 mm port was placed on the left lateral abdominal wall under direct visualization Please note that the ports were placed 18 to 20 cm away from the target anatomy of the stomach. Care was taken to check that each robotic arm was safely away from collision with the bed or the patient. At the epigastrium, a medium sized Adán liver retractor was placed under direct visualization with the Iron Floor Covering Layer placed under the right shoulder of the patient. The patient was repositioned in reverse Trendelenburg position at 21-degrees after lowering the bed. The robot was docked over the patient. Using grasper for arm 3, a grasper for arm 1, including vessel sealer for arm 4, the robotic system was docked and primed as described. Instruments were interchanged by the medical practice assistant including vessel sealer and cautery. I had sat at the console. Along the epigastrium and inferior portion of the left liver, carlin-gastric and carlin-hepatic adhesions were found. Adhesions were addressed with vessel sealer. Next, the transverse mesocolon was found tethered to the deep pelvis. With this finding, the robot was undocked and positioned for the pelvis. The bed was placed at 14-degrees Trendelenberg. The robot was re-docked. Adhesions of the greater omentum was found tethered to the distal sigmoid colon and left fallopian tube. A redundant sigmoid colon was confirmed. Vessel sealer was used to divide the sigmoid colon adhesions including of the deep pelvis. Total lysis of adhesions was performed for over 1 hr. The robot was undocked and repositioned for the upper abdomen. Once re-docked, the transverse mesocolon was reflected into the upper abdomen. The ligament of Treitz was identified and measured 60 cm antegrade. At this point, insufflation of the abdomen was insufficient. The insufflation tubing was changed. Persistent low pressures were obtained despite changing equipment. Due to equipment failure, gastric bypass was aborted. Instruments were removed by the medical practice assistant including needles. Needle count was incomplete with fluoroscopy and abdominal x-rays obtained demonstrating no foreign body within the abdomen. Incisions were closed using 4-0 Monocryl in an interrupted subcuticular fashion. Local anesthetic was infiltrated along the skin for postop analgesia. At the end of the procedure, sponge and instrument count had been verified correct by the aviation electronics technician. Abdominal x-rays confirmed no foreign body within the abdomen. The patient had tolerated the procedure well and was extubated and taken to the postanesthesia unit in stable condition. Intraoperative findings were described to the patient and family. Follow-up in the bariatric center for additional options were described. Plan - Discharge Summary Discharge Rx Participant: Yes New Discharge Prescriptions: New Acetaminophen Tab [Tylenol Tab] 1,000 mg PO Q6HR PRN #30 tablet PRN Reason: Pain Simethicone [Gas-X] 125 mg PO AC-TID PRN #20 capsule PRN Reason: Pain Continue Lisinopril [Prinivil] 40 mg PO HS Esomeprazole Magnesium [NexIUM] 20 mg PO HS Multivitamins, Thera [Multivitamin (formulary)] 1 tab PO DAILY amLODIPine [Norvasc] 5 mg PO HS Zinc 50 mg PO DAILY Cholecalciferol [Vitamin D3 (25 Mcg = 1000 Iu)] 25 mcg PO DAILY Discharge Medication List Esomeprazole Magnesium [NexIUM] 20 mg PO HS 01/09/21 [History] Lisinopril [Prinivil] 40 mg PO HS 01/09/21 [History] Multivitamins, Thera [Multivitamin (formulary)] 1 tab PO DAILY 01/09/21 [History] Zinc 50 mg PO DAILY 03/13/21 [History] amLODIPine [Norvasc] 5 mg PO HS 03/13/21 [History] Cholecalciferol [Vitamin D3 (25 Mcg = 1000 Iu)] 25 mcg PO DAILY 04/24/21 [History] Acetaminophen Tab [Tylenol Tab] 1,000 mg PO Q6HR PRN #30 tablet 08/26/21 [Rx] Simethicone [Gas-X] 125 mg PO AC-TID PRN #20 capsule 08/26/21 [Rx] Follow up Appointment(s)/Referral(s[facility] [place] [facility] - 08/28/21 (Message left with bariatric center. They will call you with appointment time.) Patient Instructions/Handouts: *[facility] - Managing Your Pain After Surgery Without Opioids, *[facility] - (Anesthesia) Discharge Instructions Outpatient Surgery, Lysis of Abdominal Adhesions (IP) Activity/Diet/Wound Care/Special Instructions: Using antibacterial soap. No lifting over 10 pounds 2 weeks, Sep 09March shower. No bathtub soaks for 2 weeks Sep 09 Use ice along incisions for today to prevent swelling. Take tylenol, aleve/ibuprofen, simethicone scheduled for 3 days for best pain relief Discharge Disposition: HOME SELF-CARE
--- NOTE | 2021-08-28 21:41 | P.DS ---
Providers Date of admission: 08/26/21 09:51 Expected date of discharge: 08/26/21 Attending physician: Kaylin Lucio Primary care physician: Moses Smith - Discharge Diagnosis(es) (1) Morbid obesity due to excess calories Status: Acute (2) Body mass index (BMI) of 40.1 to 44.9 in adult Status: Acute (3) Hypertensive heart disease Status: Acute (4) Transverse myelitis Status: Acute Hospital Course: POSTOPERATIVE DIAGNOSES: 1. Morbid obesity due to excess calories 2. Body mass index of 41.8, initial to 39.9 3. Gastroesophageal reflux disease 4. Hypertensive heart disease 5. Transverse myelitis 6. Chronic kidney disease, stage 2 7. Osteoarthritis bilateral feet 8. Osteoarthritis of the ankle, right. 9. Hypertensive heart disease 10. Hiatal hernia. 11. Hypertriglyceridemia 12. Leukocytosis 13. Anemia 14. Elevated selenium 15. Status adjustable gastric band removal 16. Peritoneal adhesions pelvis, epigastrium. COURSE: Lindsey Celaya is a 50-year-old female with lifelong morbid obesity. She has prior history of an adjustable gastric band with removal. As a result of her morbid obesity, she has developed hypertensive heart disease and osteoarthritis of the bilateral feet and ankle. She is looking into the gastric bypass. She underwent robotic lysis of adhesions. During the case, equipment failure prohibited progression of her case to the gastric bypass. Her gastric bypass was aborted. Abdominal xray was obtained confirming no foreign body within the abdomen. The patient was awakened from anesthesia. Post-operatively she was stable. Procedures: OPERATION: 1. Robotic assisted da Lashell Xi laparoscopic lysis of adhesions, pelvis, epigastrium 2. Aborted Robotic assisted da Lashell Xi laparoscopic Darya-en-Y gastric bypass ANESTHESIA: GETA and local ESTIMATED BLOOD LOSS: 5 mL SPECIMENS REMOVED: None. COMPLICATIONS: NONE. Operative Findings: 1. Dense pelvic adhesions involving descending colon and sigmoid colon to omentum requiring lysis of adhesions of the pelvis 2. Epigastric and perigastric adhesions of omentum from prior adjustable gastric band also sharply lysed 3. Sequential equipment failure prohibiting progression of gastric bypass and aborted after lysis of adhesions Patient Condition at Discharge: Stable Plan - Discharge Summary Discharge Rx Participant: Yes New Discharge Prescriptions: New Acetaminophen Tab [Tylenol Tab] 1,000 mg PO Q6HR PRN #30 tablet PRN Reason: Pain Simethicone [Gas-X] 125 mg PO AC-TID PRN #20 capsule PRN Reason: Pain Continue Lisinopril [Prinivil] 40 mg PO HS Esomeprazole Magnesium [NexIUM] 20 mg PO HS Multivitamins, Thera [Multivitamin (formulary)] 1 tab PO DAILY amLODIPine [Norvasc] 5 mg PO HS Zinc 50 mg PO DAILY Cholecalciferol [Vitamin D3 (25 Mcg = 1000 Iu)] 25 mcg PO DAILY Discharge Medication List Esomeprazole Magnesium [NexIUM] 20 mg PO HS 01/09/21 [History] Lisinopril [Prinivil] 40 mg PO HS 01/09/21 [History] Multivitamins, Thera [Multivitamin (formulary)] 1 tab PO DAILY 01/09/21 [History] Zinc 50 mg PO DAILY 03/13/21 [History] amLODIPine [Norvasc] 5 mg PO HS 03/13/21 [History] Cholecalciferol [Vitamin D3 (25 Mcg = 1000 Iu)] 25 mcg PO DAILY 04/24/21 [History] Acetaminophen Tab [Tylenol Tab] 1,000 mg PO Q6HR PRN #30 tablet 08/26/21 [Rx] Simethicone [Gas-X] 125 mg PO AC-TID PRN #20 capsule 08/26/21 [Rx] Follow up Appointment(s)/Ref[place](s[place] [facility] [place] - 08/28/21 (Message left with bariatric center. They will call you with appointment time.) Patient Instructions/Handouts: *[facility] - Managing Your Pain After Surgery Without Opioids, *[facility] - (Anesthesia) Discharge Instructions Outpatient Surgery, Lysis of Abdominal Adhesions (IP) Activity/Diet/Wound Care/Special Instructions: Using antibacterial soap. No lifting over 10 pounds 2 weeks, Sep 09March shower. No bathtub soaks for 2 weeks Sep 09 Use ice along incisions for today to prevent swelling. Take tylenol, aleve/ibuprofen, simethicone scheduled for 3 days for best pain relief Discharge Disposition: HOME SELF-CARE
== END 2021-08-26 16:48 | disposition home or self-care (01) | DRG 983 ==
LOC: 2ORMAIN 09:51
PROVIDERS: ADMIT Surgery Plastic and Reconstructive Surgery; ATTEND Surgery Plastic and Reconstructive Surgery
PROC: 0DNN4ZZ Release Sigmoid Colon, Percutaneous Endoscopic Approach (ICD-10-PCS; principal; 2021-08-26 11:50)
DX: E66.01 Morbid (severe) obesity due to excess calories (principal); Z68.41 Body mass index [BMI] 40.0-44.9, adult; I13.10 Hypertensive heart and chronic kidney disease without heart failure, with stage 1 through stage 4 chronic kidney disease, or unspecified chronic kidney disease; Z53.9 Procedure and treatment not carried out, unspecified reason; Z20.822 Contact with and (suspected) exposure to COVID-19; N18.2 Chronic kidney disease, stage 2 (mild); K44.9 Diaphragmatic hernia without obstruction or gangrene; E78.1 Pure hyperglyceridemia; K21.9 Gastro-esophageal reflux disease without esophagitis; M19.071 Primary osteoarthritis, right ankle and foot; M19.072 Primary osteoarthritis, left ankle and foot; D64.9 Anemia, unspecified; D72.829 Elevated white blood cell count, unspecified; R26.9 Unspecified abnormalities of gait and mobility; Z79.899 Other long term (current) drug therapy; Z86.69 Personal history of other diseases of the nervous system and sense organs; Z90.49 Acquired absence of other specified parts of digestive tract; Z87.19 Personal history of other diseases of the digestive system; Z87.2 Personal history of diseases of the skin and subcutaneous tissue; Z87.39 Personal history of other diseases of the musculoskeletal system and connective tissue; Z98.890 Other specified postprocedural states; Z88.7 Allergy status to serum and vaccine; Z83.49 Family history of other endocrine, nutritional and metabolic diseases
CPT/HCPCS: 64999; 74018; 86850; 86900; 86901; 87635

== ENCOUNTER 2021-09-12 09:19 | Day surgery (SDC) | payer BC ==
[2021-09-04 14:54] VITALS: BMI 38.2
--- NOTE | 2021-09-09 09:07 | P.GSHP ---
History of Present Illness H&P Date: 09/09/21 CHIEF COMPLAINT: Colon screen HISTORY OF PRESENT ILLNESS: The patient is a 50-year-old female who presents for colon screen. Lower endoscopy was offered for further evaluation and management. PAST MEDICAL HISTORY: Please see list. PAST SURGICAL HISTORY: Please see list. MEDICATIONS: Please see list. ALLERGIES: Please see list. SOCIAL HISTORY: No illicit drug use FAMILY HISTORY: No reports of Crohn disease or ulcerative colitis. REVIEW OF ORGAN SYSTEMS: CONSTITUTIONAL: No reports of fevers or chills. PHYSICAL EXAM: VITAL SIGNS: Stable GENERAL: Well-developed pleasant in no acute distress. HEENT: No scleral icterus. Extraocular movements grossly intact. Moist buccal mucosa. NECK: Supple without lymphadenopathy. CHEST: Unlabored respirations. Equal bilateral excursions. CARDIOVASCULAR: Regular rate and rhythm. Distal 2+ pulses. ABDOMEN: Soft, nontender, nondistended. MUSCULOSKELETAL: No clubbing, cyanosis, or edema. ASSESSMENT: 1. Colon screen. PLAN: 1. Recommend proceeding with a lower endoscopy Past Medical History Past Medical History: GERD/Reflux, Hypertension, Osteoarthritis (OA) Additional Past Medical History / Comment(s): transverse mylitis. nerve damage. weakness. gait disturbances. uses a walker. chronic intermittent straight catheter use. CKD stage 2 History of Any Multi-Drug Resistant Organisms: None Reported Past Surgical History: Bariatric Surgery, Cholecystectomy, Orthopedic Surgery Additional Past Surgical History / Comment(s): bilateral foot surgery right ankle surgery lap band 2000 lap band removal 2019. jaw surgery. fatty tumor removal right wrist. Past Anesthesia/Blood Transfusion Reactions: No Reported Reaction Smoking Status: Never smoker - Past Family History Mother Family Medical History: No Reported History Medications and Allergies Home Medications Medication Instructions Recorded Confirmed Type Esomeprazole Magnesium [NexIUM] 20 mg PO HS 01/09/21 09/04/21 History Lisinopril [Prinivil] 40 mg PO HS 01/09/21 09/04/21 History Multivitamins, Thera [Multivitamin 1 tab PO DAILY 01/09/21 09/04/21 History (formulary)] amLODIPine [Norvasc] 5 mg PO HS 03/13/21 09/04/21 History Allergies Allergy/AdvReac Type Severity Reaction Status Date / Time Tetanus Vaccines and Toxoid Allergy Anaphylaxis Verified 09/04/21 14:49
[~2021-09-12 09:19] MED LIST changes: -CHLORHEXIDINE GLUCONATE 15 ML CUP MUCOUS MEM PRN; -ENOXAPARIN 40 MG/0.4 ML SYRINGE SQ PRN; +LACTATED RINGERS 1,000 ML IV SCH; -PANTOPRAZOLE 40 MG/10 ML VIAL IVP PRN
[2021-09-12 09:50] VITALS: TEMP 97.7
[2021-09-12] MEDS ORDERED: PROPOFOL 10 MG/ML 20 ML VIAL IV ONE (11:04)
[2021-09-12] MEDS ORDERED: LIDOCAINE 1% INJ 10MG/ML (20 ML MDV) ONE (11:04)
[2021-09-12 11:37] VITALS: RESP 16
--- NOTE | 2021-09-12 11:48 | P.PCN ---
Date of Procedure: 09/12/21 Description of Procedure: PREOPERATIVE DIAGNOSIS: Colonoscopy screening. POSTOPERATIVE DIAGNOSIS: Colonoscopy screening. Diverticulosis, sigmoid colon OPERATION: Colonoscopy to the cecum SURGEON: Kaylin Lucio MD. ANESTHESIA: MAC. INDICATIONS: The patient is a 59-year-old female who presents for colonoscopy screening. Benefits and risks were described and informed consent was obtained. DESCRIPTION OF PROCEDURE: The patient had undergone Sutab prep. The patient had been brought into the ope rating room and laid in the left lateral decubitus position. After adequate intravenous sedation, the rectum was examined with 2% lidocaine jelly. No external hemorrhoids were encountered. The rectal tone was within normal limits. No lesions were palpated in the rectal vault. An Olympus colonoscope was advanced to the cecum. The prep was excellent. Sigmoid diverticulosis was encountered. No colonic polyps were found. No evidence of focal colitis was found. Retroflexion of the scope demonstrated grade 1 internal hemorrhoids without active bleeding or inflammation. The colon was desufflated. The patient had tolerated the procedure well. Withdrawal time was over 6 minutes. FINDINGS: Aronchick preparation quality scale 1 (1-5) Internal hemorrhoids, grade 1 No external prolapsed hemorrhoids. No arteriovenous malformations. No adenomatous polyps. No focal colitis. Sigmoid diverticulosis RECOMMENDATIONS: Lower endoscopy in 5 years, 2025 Plan - Discharge Summary Discharge Rx Participant: No New Discharge Prescriptions: Continue Lisinopril [Prinivil] 40 mg PO HS Esomeprazole Magnesium [NexIUM] 20 mg PO HS Multivitamins, Thera [Multivitamin (formulary)] 1 tab PO DAILY amLODIPine [Norvasc] 5 mg PO HS Discharge Medication List Esomeprazole Magnesium [NexIUM] 20 mg PO HS 01/09/21 [History] Lisinopril [Prinivil] 40 mg PO HS 01/09/21 [History] Multivitamins, Thera [Multivitamin (formulary)] 1 tab PO DAILY 01/09/21 [History] amLODIPine [Norvasc] 5 mg PO HS 03/13/21 [History] Follow up Appointment(s)/Referral(s): Kaylin Lucio MD [STAFF PHYSICIAN] - As Needed Patient Instructions/Handouts: *Surgery [facility] - (Anesthesia) Endoscopy Discharge Instructions, Diverticulosis (DC), Diverticulosis Diet (GEN), Colonoscopy (DC) Activity/Diet/Wound Care/Special Instructions: Repeat colonoscopy in 5 years 2024 Discharge Disposition: HOME SELF-CARE
[2021-09-12 11:56] VITALS: BP 152/61; PULSE 62
== END 2021-09-12 12:30 | disposition home or self-care (01) ==
LOC: ORWHC2ENDO 09:19
PROVIDERS: ATTEND Surgery Plastic and Reconstructive Surgery
DX: Z12.11 Encounter for screening for malignant neoplasm of colon (principal); K57.30 Diverticulosis of large intestine without perforation or abscess without bleeding; K64.0 First degree hemorrhoids; K21.9 Gastro-esophageal reflux disease without esophagitis; M19.90 Unspecified osteoarthritis, unspecified site; G37.3 Acute transverse myelitis in demyelinating disease of central nervous system; R26.9 Unspecified abnormalities of gait and mobility; I12.9 Hypertensive chronic kidney disease with stage 1 through stage 4 chronic kidney disease, or unspecified chronic kidney disease; N18.9 Chronic kidney disease, unspecified; Z94.0 Kidney transplant status; Z98.84 Bariatric surgery status; Z90.49 Acquired absence of other specified parts of digestive tract; Z98.890 Other specified postprocedural states; Z79.899 Other long term (current) drug therapy; Z88.7 Allergy status to serum and vaccine
CPT/HCPCS: J2001; J2704; G0121; 45378

== ENCOUNTER 2021-09-30 08:55 | Inpatient (IN) | payer BC ==
[~2021-09-30 08:55] MED LIST changes: +CHLORHEXIDINE GLUCONATE 15 ML CUP MUCOUS MEM PRN; +DEXAMETHASONE SOD PHOSPHATE 4 MG/ML 1 ML VIAL IV ONE; -LACTATED RINGERS 1,000 ML IV SCH; +LIDOCAINE 1% (10MG/ML) FOR IV START INTRADERMA PRN; +MIDAZOLAM 2 MG/2 ML VIAL IV PRN; +ONDANSETRON 4 MG/2 ML VIAL IVP ONE; +PANTOPRAZOLE 40 MG/10 ML VIAL IVP PRN
--- NOTE | 2021-09-30 10:50 | P.GSHP ---
History of Present Illness H&P Date: 09/30/21 CHIEF COMPLAINT: Morbid obesity. HISTORY OF PRESENT ILLNESS: Lindsey Celaya is a 50-year-old female with lifelong morbid obesity. She has prior history of an adjustable gastric band with removal. As a result of her morbid obesity, she has developed hypertensive heart disease and osteoarthritis of the bilateral feet and ankle. Over one month ago, patient had attempted gastric bypass but aborted due to severe adhesions. She presents today for her gastric bypass. At height of 5 feet 4.25 inches, her ideal body weight is 144 pounds. Her highest weight was 245 pounds, BMI 41.8. PAST MEDICAL HISTORY: 1. Morbid obesity due to excess calories 2. Body mass index of 41.8, initial 3. Gastroesophageal reflux disease 4. Hypertensive heart disease 5. Transverse myelitis 6. Chronic kidney disease, stage 2 7. Osteoarthritis bilateral feet 8. Osteoarthritis of the ankle, right. 9. Hypertensive heart disease PAST SURGICAL HISTORY: 1. Bilateral foot surgery 2. Right ankle surgery 3. Lap band placement, 1999 with removal 2018 4. Fatty tumor removal 5. Cholecystectomy HOME MEDICATIONS: Home Medications Medication Instructions Recorded Confirmed Esomeprazole Magnesium [NexIUM] 20 mg PO HS 01/09/21 05/01/21 Lisinopril [Prinivil] 40 mg PO HS 01/09/21 05/01/21 Multivitamins, Thera [Multivitamin 1 tab PO DAILY 01/09/21 05/01/21 (formulary)] Zinc 50 mg PO DAILY 03/13/21 05/01/21 amLODIPine [Norvasc] 5 mg PO HS 03/13/21 05/01/21 Cholecalciferol [Vitamin D3 (25 25 mcg PO DAILY 04/24/21 05/01/21 Mcg = 1000 Iu)] Previous Rx's Medication Instructions Recorded Omeprazole [PriLOSEC] 40 mg PO DAILY #14 cap 04/29/21 ALLERGIES: Allergies Allergy/AdvReac Type Severity Reaction Status Date / Time Tetanus Vaccines and Toxoid Allergy Anaphylaxis Verified 05/01/21 14:08 SOCIAL HISTORY: Denies past tobacco use. FAMILY HISTORY: No family history of ulcerative colitis disease or Crohn's disease. Family history of morbid obesity. No lupus in the family. No reports of stomach or esophageal cancer. REVIEW OF ORGAN SYSTEMS: CONSTITUTIONAL: At height of 5 feet 4.25 inches, her ideal body weight is 144 pounds. Her highest weight was 245 pounds, BMI 41.8. She comes in 234 pounds. Her body mass index is 39.9. She is 90 pounds overweight. HEENT: Denies any active troubles with vision or hearing. ENDOCRINE: Denies diabetes. No hypothyroidism. CARDIOVASCULAR: Denies past reports of palpitations or heart attacks or chest pain. Has hypertensive heart disease. RESPIRATORY: Denies chronic obstructive pulmonary disease. GASTROINTESTINAL: Denies any bright red blood per rectum. No diarrhea. No constipation. Has gastroesophageal reflux disease. GENITOURINARY: Denies bladder urgency. No recent blood in urine MUSCULOSKELETAL: Has lower back pain and joint pain. NEURO: No headaches. No seizure disorders. Has lower extremity weakness. PSYCH: Denies depression. No suicidal ideation. RHEUMATOLOGIC: No lupus. No rheumatoid arthritis. HEMATOLOGIC: Denies any abnormal bleeding or bruising. SKIN: No rash. No skin cancer. PHYSICAL EXAM: VITAL SIGNS: Height 5 foot 4.25 inches, weight 234 pounds. BMI 39.9 GENERAL: Well-developed in no acute distress. HEENT: No scleral icterus. Extraocular movements grossly intact. Hears conversational speech. No nasal drainage. NECK: Supple without lymphadenopathy. CHEST: Nonlabored respirations with equal bilateral excursions. CARDIOVASCULAR: Regular rate and regular rhythm. Distal 2+ pulses. ABDOMEN: Obese, soft, nontender, nondistended. MUSCULOSKELETAL: No clubbing, cyanosis. NEURO: No focal or lateralizing signs. Cranial nerves 2 through 12 grossly within normal limits. PSYCH: Appropriate affect. Alert and oriented to person, place and time. SKIN: Good skin turgor. Well perfused. ASSESSMENT: 1. Morbid obesity due to excess calories 2. Body mass index of 41.8, initial to 39.9 3. Gastroesophageal reflux disease 4. Hypertensive heart disease 5. Transverse myelitis 6. Chronic kidney disease, stage 2 7. Osteoarthritis bilateral feet 8. Osteoarthritis of the ankle, right. 9. Hypertensive heart disease 10. Hiatal hernia. 11. Hypertriglyceridemia 12. Leukocytosis 13. Anemia 14. Elevated selenium 15. Status adjustable gastric band removal PLAN: 1. Bariatric options between a sleeve, band and a Darya-en-Y gastric bypass were reviewed in detail. The patient elected for a gastric bypass. Robotic assisted approach described. 2. The [place] [facility] Data was also reviewed with benefits and risks as described. Past Medical History Past Medical History: GERD/Reflux, Hypertension, Osteoarthritis (OA), Renal Disease Additional Past Medical History / Comment(s): dx transverse mylitis at age 25 caused nerve damage. weakness. gait disturbances. uses a walker. chronic intermittent straight catheter use. CKD stage 2 History of Any Multi-Drug Resistant Organisms: None Reported Past Surgical History: Bariatric Surgery, Cholecystectomy, Orthopedic Surgery Additional Past Surgical History / Comment(s): bilateral foot surgery (shaved off bone top of foot), right ankle surgery/najma, lap band 1999, lap band removal 2018, jaw surgery(upper and lower jaw for braces). fatty tumor removal right wrist. 08/26/21 lysis of adhesions Past Anesthesia/Blood Transfusion Reactions: No Reported Reaction Smoking Status: Never smoker - Past Family History Mother Family Medical History: No Reported History Medications and Allergies Home Medications Medication Instructions Recorded Confirmed Type Esomeprazole Magnesium [NexIUM] 20 mg PO HS 01/09/21 09/23/21 History Lisinopril [Prinivil] 40 mg PO HS 01/09/21 09/23/21 History Multivitamins, Thera [Multivitamin 1 tab PO DAILY 01/09/21 09/23/21 History (formulary)] amLODIPine [Norvasc] 5 mg PO HS 03/13/21 09/23/21 History Allergies Allergy/AdvReac Type Severity Reaction Status Date / Time Tetanus Vaccines and Toxoid Allergy Anaphylaxis Verified 09/23/21 13:27
[2021-09-30] MEDS: LACTATED RINGERS 1,000 ML IV SCH ×2 (12:43→13:34)
[2021-09-30] MEDS: ENOXAPARIN 40 MG/0.4 ML SYRINGE SQ PRN ×2 (12:54→12:55)
[2021-09-30] MEDS ORDERED: MIDAZOLAM 2 MG/2 ML VIAL ONE (13:33)
[2021-09-30] MEDS ORDERED: HYDROmorphone (PF) 1 MG/ML ONE (13:33)
[2021-09-30] MEDS ORDERED: ROCURONIUM 10 MG/ML (5 ML VIAL) IV ONE (13:33)
[2021-09-30] MEDS ORDERED: fentaNYL (PF) 50 MCG/ML 2 ML AMP ONE (13:33)
[2021-09-30] MEDS ORDERED: LIDOCAINE 1% INJ 10MG/ML (20 ML MDV) ONE (13:33)
[2021-09-30] MEDS ORDERED: GLYCOPYRROLATE 0.2 MG/ML 2 ML VIAL ONE (13:33)
[2021-09-30] MEDS ORDERED: PROPOFOL 10 MG/ML 20 ML VIAL IV ONE (13:33)
[2021-09-30] MEDS ORDERED: NEOSTIGMINE 1 MG/ML 10 ML VIAL ONE (13:33)
[2021-09-30] MEDS ORDERED: SUCCINYLCHOLINE CHLORIDE 100 MG/5 ML SYR IV ONE (13:33)
[2021-09-30] MEDS ORDERED: BUPIVACAIN-EPI 0.25%-1:200,000 30 ML VIAL SQ ONE (13:38)
[2021-09-30] MEDS ORDERED: LACTATED RINGERS 1,000 ML IV ONE ×2 (15:24→17:08)
[2021-09-30] MEDS ORDERED: NALOXONE 0.4 MG/ML 1 ML VIAL IV PRN (17:28)
[2021-09-30] MEDS ORDERED: diphenhydrAMINE 50 MG/ML 1 ML VIAL IVP PRN (17:28)
[2021-09-30] MEDS ORDERED: SCOPOLAMINE 1.5MG/72HR PATCH TRANSDERM SCH (17:30)
--- NOTE | 2021-09-30 17:42 | P.OP ---
Date of Procedure: 09/30/21 Description of Procedure: SURGEON: IVAN AGRAWAL MD PREOPERATIVE DIAGNOSES: 1. Morbid obesity due to excess calories 2. Body mass index of 41.8, initial to 39.9 3. Gastroesophageal reflux disease 4. Hypertensive heart disease 5. Transverse myelitis 6. Chronic kidney disease, stage 2 7. Osteoarthritis bilateral feet 8. Osteoarthritis of the ankle, right. 9. Hypertensive heart disease 10. Hiatal hernia. 11. Hypertriglyceridemia 12. Leukocytosis 13. Anemia 14. Elevated selenium 15. Status adjustable gastric band removal 16. Chronic self-catheterization POSTOPERATIVE DIAGNOSES: 1. Morbid obesity due to excess calories 2. Body mass index of 41.8, initial to 39.9 3. Gastroesophageal reflux disease 4. Hypertensive heart disease 5. Transverse myelitis 6. Chronic kidney disease, stage 2 7. Osteoarthritis bilateral feet 8. Osteoarthritis of the ankle, right. 9. Hypertensive heart disease 10. Hiatal hernia. 11. Hypertriglyceridemia 12. Leukocytosis 13. Anemia 14. Elevated selenium 15. Status adjustable gastric band removal 16. Chronic self-catheterization OPERATION: 1. Robotic assisted da Lashell Xi laparoscopic Larry-en-Y gastric bypass, 100 cm antecolic antegastric Larry limb, with 25 mm EEA. 2. Intraoperative esophagogastrojejunoscopy with retrieval of foreign body ANESTHESIA: GETA and local ESTIMATED BLOOD LOSS: 10 mL SPECIMENS REMOVED: None. COMPLICATIONS: NONE. Operative Findings: 1. Biliopancreatic limb 60 cm 2. Bypass performed using 100 cm larry limb secondary to avoid increased tension at 150 cm. 3. Jejunojejunostomy and Cross defects closed. 4. Leak test negative with gastrojejunal anastomosis patent and hemostatic. 5. Reinforcement sutures were placed along the gastrojejunal anastomosis at 9:00, 12:00, 3:00 6. No fatty liver disease 7. Moderate superior pole adhesions from prior gastric band. INDICATIONS: Lindsey Celaya is a 50-year-old female with lifelong morbid obesity. She has prior history of an adjustable gastric band with removal. As a result of her morbid obesity, she has developed hypertensive heart disease and osteoarthritis of the bilateral feet and ankle. She completed the bariatric education and diet. She presents for gastric bypass. At height of 5 feet 4.25 inches, her ideal body weight is 144 pounds. Her highest weight was 245 pounds, BMI 41.8. She presents today at 220 pounds. A second-generation bariatric consent form was described in detail including the possibility of protein malnutrition, leaks, gastrojejunal stricture, venous thrombosis, need for further surgery for which she demonstrated understanding. Benefits and risks of the procedure were described at length. Informed consent was obtained. DESCRIPTION: The patient was brought into the operating room theater. She was placed supine. She had received Lovenox subcutaneously for DVT prophylaxis. Additionally she Peridex oral solution as an oral decontaminant was placed per anesthesia. After general induction, the abdomen was prepped and draped in standard sterile fashion. Ioban draping was placed along the abdomen. Hernandez catheter was placed A robotic [employer] Xi system was prepped and primed. Incisions were proposed at 15 cm from the xiphoid. Proposed port sites were marked with indelible marker along the anterior axillary line bilaterally, mid clavicular line bilaterally with each port marked 10 cm from each other. The robotic stapler port was marked for the right midclavicular line including along the left midclavicular line. A 5 mm 0 degrees laparoscopic trocar entry was performed along the left upper quadrant. The abdomen was insufflated to 15 mmHg pressure, which she tolerated w ell. Diagnostic laparoscopy demonstrated no injury to bowel, viscera, or mesentery. The liver was consistent with her 2-week protein diet. An 8 mm camera port was placed left lateral to the umbilicus at the epigastrium, 15 cm distal to the xiphoid. Next, 12-mm robot stapler port was placed along the right mid abdomen. An 12 mm port was exchanged along the left upper quadrant. An 8 mm port was placed on the left lateral abdominal wall under direct visualization Please note that the ports were placed 18 to 20 cm away from the target anatomy of the stomach. Care was taken to check that each robotic arm was safely away from collision with the bed or the patient. At the epigastrium, a medium sized Adán liver retractor was placed under direct visualization with the Iron Owner Operator Tanker Truck Driver placed under the right shoulder of the patient. The patient was repositioned in reverse Trendelenburg position at 21-degrees after lowering the bed. The robot was docked over the patient. Using grasper for arm 3, a grasper for arm 1, including vessel sealer for arm 4, the robotic system was docked and primed as described. Instruments were interchanged by the medical assistant secretary including endoscissors, the needle local company flatbed truck driver, and stapler. I had sat at the console. Next, the transverse mesocolon was reflected into the upper abdomen. The ligament of Treitz was identified and measured 60 cm antegrade and marked using 3-0 Silk. The jejunum was divided at the 60 cm point using 60-mm blue loads above the suture measurement. The biliopancreatic limb was tacked to the abdominal wall. The Larry limb was measured 100 cm in an antegrade fashion to avoid tension along the proposed gastrojejunal anastomosis. At 100 cm along the anti-mesenteric border of the Larry limb, a jejunojejunostomy was proposed whereby enterotomies were created along the biliopancreatic limb including the Larry limb using a Bovie cautery. A stay suture of 3-0 Slik was placed to align and create the anastomosis. The enterotomies along the anti- mesenteric borders were created followed by unidirectional fire from the patient's right side using 60 mm blue loads [employer] robotic stapler. The enterotomy was closed after horizontal mattress stitch of 3-0 silk used to elevate the enterotomy followed by closure with the robotic stapler blue load. The jejunojejunostomy was oversewn and refired with a stapler. Attention was now brought to the creation of the gastrojejunostomy. Moderate anterior gastric adhesions were found to the underside of the liver. Care was taken to release most of the adhesions of the stomach to the liver. Along the lesser curvature of the stomach, dissection was made along the retrogastric space to allow first firing of the robotic staple. Green loads of 60 mm staplers were used to divide the stomach to create the gastric pouch. Complete separation of the gastric pouch and gastric remnant was confirmed without gastric gastric fistula. The spleen was unharmed. The patient was then prepared for placement of a Orvil. The patient was Mallampati 2. A 25-mm Orvil was selected for placement by the nurse dredge runner. The Orvil tubing was placed anterior to the staple line of the gastric pouch and brought out through the left inferior lateral port. I re-scrubbed into the case. The robotic arms were temporarily undocked. The Orvil was then carefully and successfully navigated with the help of the nurse dredge runner into the gastric pouch. The sutures were identified and divided. The tubing was from the 25 mm anvil. As the Orvil had been placed, the blind jejunal limb was brought proximally into the upper abdomen. At this point, the Orvil had retracted into the gastric pouch. A double snare technique was performed to place a snare via the left upper quadrant trocar near the gastric pouch. I went to the head of the bed to perform an upper endoscopy. The Orvil was retrieved sutures. The snare from the abdominal cavity was brought out through the mouth with a double snare technique. The intra- abdominal snare was used to retrieve the Orvil repositioned into the prior gastrotomy. We scrubbed into the case. No torsion was found upon the Larry limb. No tension was identified as the limb was brought along the upper abdomen. The blind jejunal limb was previously opened using hook cautery. The 25-mm EEA stapler was brought through the left anterior lateral port site from the left side. The EEA stapler was brought through the open jejunal limb and its needle was deployed at the antimesenteric border where the anvil were mated for approxima tely 1 minute upon firing. The stapler was removed after irrigating the shaft of the instrument with warm normal saline. Donuts were found to be intact and on both sides. The da Lashell Xi robot arms were then re-docked. I sat at the console. The open jejunal limb defect was closed using 60 mm blue loads after releasing any tension from the blind jejunal limb. Care was taken to avoid any long blind limb to avoid candycane syndrome. Reinforcement sutures were placed along the gastrojejunal anastomosis and placed along the 9:00 and 3 o'clock position using 3-0 Vicryl. The Cross defect and jejunojejunostomy mesenteric defect were closed using 2-0 VLOC. I then went to the head of the [facility] to perform the esophagogastrojejunoscopy and a leak test. An Olympus gastroscope was passed alongthe posterior oropharynx which was unremarkable for any injury to the vocal cords. The scope was passed down to the proximal portion of the pouch, whereby no active bleeding was encountered. Excellent visualization of the gastrojejunostomy anastomosis, including the Larry limb was encountered with endoscopic image obtained. The anastomosis was found to be patent. The gastrointestinal tract was desufflated. No evidence of intraoperative leak was encountered as the gastric pouch and anastomosis were submerged under normal saline solution. The robot was then undocked. I then went back to the bedside of the patient, whereby with coordinated effort of the medical assistant secretary, irrigation was aspirated from the upper abdominal cavity. Tisseel was placed circumferentially over the anastomosis of the ga strojejunostomy. The fascial defect of the EEA stapler was closed using Korey Trujillo and 0 Vicryl. All instruments and pneumoperitoneum were evacuated from the abdominal cavity. The port correlating with the EEA stapler device was cleansed with normal saline solution and hydrogen peroxide. The rest of incisions were reapproximated using 4-0 Monocryl in an interrupted subcuticular fashion. Local anesthetic was infiltrated along the skin for postop analgesia. Liquid glue was applied to the skin. OptiFoam dressing was placed along the EEA stapler site. At the end of the procedure, needle, sponge and instrument count had been verified correct by the surgical technologist. The patient had tolerated the procedure well and was extubated and taken to the postanesthesia unit in stable condition. Intraoperative findings were described to the patient's family who were very pleased with the level of care.
[2021-09-30] MEDS: HYDROmorphone 0.5 MG/0.5 ML SYRINGE IVP PRN ×4 (17:45→18:22)
[2021-09-30] MEDS: ACETAMINOPHEN IV (For NPO) 1,000 MG in EMPTY BAG 1 BAG IVPB SCH (18:03)
[2021-09-30] MEDS: SIMETHICONE 40 MG/0.6 ML DROPS 2,000 MG/30 ML BOTTLE PO SCH (20:32)
[2021-09-30] MEDS: HYOSCYAMINE ORAL DROPS 1.875 MG/15 ML BOTTLE PO SCH (20:32)
[2021-09-30] MEDS: ONDANSETRON 4 MG/2 ML VIAL IVP SCH (20:32)
[2021-09-30] MEDS: amLODIPine 5 MG TAB PO SCH (20:53)
[2021-09-30] MEDS: lisinopriL 20 MG TAB PO SCH (20:54)
[2021-09-30] MEDS: ALBUTEROL NEBULIZED 2.5 MG/3 ML INHALATION SCH (21:15)
[2021-10-01] MEDS: 0.9% NACL WITH KCL 20 MEQ/L 1,000 ML IV SCH ×5 (00:51→17:12)
[2021-10-01] MEDS: ACETAMINOPHEN IV (For NPO) 1,000 MG in EMPTY BAG 1 BAG IVPB SCH ×3 (00:54→12:45)
[2021-10-01] MEDS: ONDANSETRON 4 MG/2 ML VIAL IVP SCH ×4 (00:55→17:13)
[2021-10-01] MEDS: SIMETHICONE 40 MG/0.6 ML DROPS 2,000 MG/30 ML BOTTLE PO SCH ×4 (00:55→17:12)
[2021-10-01] MEDS: HYOSCYAMINE ORAL DROPS 1.875 MG/15 ML BOTTLE PO SCH ×4 (00:55→17:12)
[2021-10-01] MEDS: LACTATED RINGERS 1,000 ML IV SCH (07:14)
[2021-10-01] MEDS: ENOXAPARIN 40 MG/0.4 ML SYRINGE SQ SCH (07:30)
[2021-10-01] MEDS: PANTOPRAZOLE 40 MG/10 ML VIAL IV SCH (07:30)
[2021-10-01] MEDS: HYDROmorphone 1 MG/ML 1 ML SYRINGE IVP PRN (07:31)
[2021-10-01] MEDS: ALBUTEROL NEBULIZED 2.5 MG/3 ML INHALATION SCH ×4 (08:01→19:43)
[2021-10-01 09:17] LABS: Basophils # (A) 0.03 X 10*3/uL (0.00-0.10); Basophils % (A) 0.2 %; Eosinophils # (A) 0 X 10*3/uL (0.04-0.35); Eosinophils % (A) 0 %; HCT 37.8 % (37.2-46.3); HGB 12.1 g/dL (12.0-15.0); Lymphocytes % (A) 7.2 %; MCH 30.3 pg (27.0-32.0); MCV 94.7 fL (80.0-97.0); Mean Platelet Volume 11.2 fL (9.5-12.2); Monocytes # (A) 1.24 X 10*3/uL (0.20-1.00); Monocytes % (A) 6.9 %; Neutrophils # (A) 15.39 X 10*3/uL (1.80-7.70); Neutrophils % (A) 85.2 %; Platelet Count 361 X 10*3/uL (140-440); RBC 3.99 X 10*6/uL (4.10-5.20); RDW 13.3 % (11.5-14.5); WBC 18.05 X 10*3/uL (4.50-10.00)
[2021-10-01 09:35] LABS: African American GFR (CKD) 117.1 (60.0-200.0); Anion Gap 11.6 mmol/L (10.00-18.00); Blood Urea Nitrogen 13.9 mg/dL (9.0-27.0); Calcium 9.3 mg/dL (8.7-10.3); Carbon Dioxide 24.4 mmol/L (20.0-27.5); Magnesium 2.2 mg/dL (1.5-2.4); Phosphorus 4.2 mg/dL (2.4-5.1); Potassium 5.3 mmol/L (3.5-5.5)
--- NOTE | 2021-10-01 10:42 | FL ---
EXAMINATION TYPE: FL UGI DATE OF EXAM: 10/01/2021 COMPARISON: None HISTORY: Darya-en-Y TECHNIQUE: A single contrast UGI study is performed. FINDINGS: Contrast passes through the distal esophagus into the residual stomach. There appears to be prompt fl ow into the proximal jejunum. No extravasation of contrast is evident. No free air is noted during this examination. IMPRESSIONS: 1. No extravasation of contrast post Darya-en-Y
[2021-10-01 15:10] VITALS: BMI 36.8
--- NOTE | 2021-10-01 15:22 | P.PN ---
Subjective Progress Note Date: 10/01/21 CHIEF COMPLAINT: Morbid obesity HISTORY OF PRESENT ILLNESS: Patient is postop day #1 status post robotic- assisted laparoscopic Darya-en-Y gastric bypass. She reports that her pain is controlled. She denies any nausea or vomiting. Denies any flatus. Patient does have Hernandez catheter in place. She straight caths at home almost every hour. Patient has been up and ambulating. Denies any flatus. Afebrile. WBC 18.05 Hgb 12.1 platelets 361 sodium 136 potassium 5.3 creatinine 0.7 magnesium 2.2 PHYSICAL EXAM: VITAL SIGNS: Reviewed GENERAL: Well-developed in no acute distress. HEENT: No sclera icterus. Extraocular movements grossly intact. Moist buccal mucosa. Head is atraumatic, normocephalic. Hears conversational speech. No nasal drainage. NECK: Supple without lymphadenopathy. CHEST: Non-labored respirations and equal bilateral excursions. CARDIOVASCULAR: Palpable 2+ radial pulses. ABDOMEN: Soft. Nondistended. Incision sites clean dry and intact MUSCULOSKELETAL: No clubbing or cyanosis. NEUROLOGIC: No focal or lateralizing signs. Cranial nerves II through XII grossly intact. PSYCH: Appropriate affect. Alert and oriented to person, place and time. SKIN: Well perfused. Good skin turgor. ASSESSMENT: 1. Morbid obesity due to excess calories 2. Body mass index of 41.8, initial to 39.9 3. Gastroesophageal reflux disease 4. Hypertensive heart disease 5. Transverse myelitis 6. Chronic kidney disease, stage 2 7. Osteoarthritis bilateral feet 8. Osteoarthritis of the ankle, right. 9. Hypertensive heart disease 10. Hiatal hernia. 11. Hypertriglyceridemia 12. Leukocytosis 13. Anemia 14. Elevated selenium 15. Status adjustable gastric band removal 16. Chronic self-catheterization PLAN: -Start bariatric clear liquid diet -We'll have nursing staff obtain abdominal binder that was ordered -Continue IV fluids -Continue pain medication as needed -Continue Hernandez catheter since patient does self catheterization at home -Encourage patient to ambulate -Encourage patient to use incentive spirometer -GI prophylaxis Protonix and DVT prophylaxis Lovenox Physician Cheesemaking Laborer note has been reviewed by physician. Signing provider agrees with the documented findings, assessment, and plan of care. Objective - Vital Signs Vital signs: Vital Signs Temp 98.9 F 10/01/21 08:00 Pulse 80 10/01/21 11:41 Resp 16 11/30/21 08:00 BP 119/77 10/01/21 08:00 Pulse Ox 94 L 10/01/21 08:01 Intake & Output 09/30/21 10/01/21 10/01/21 18:59 06:59 18:59 Intake Total 2199 Output Total 110 Balance 2089 Weight 100.3 kg 100.3 kg Intake: IV 0 Output: Urine 100 Estimated Blood Loss 10 Other: Voiding Method Indwelling Catheter Indwelling Catheter - Labs CBC & Chem 7: 10/01/21 05:19 10/01/21 05:19 Labs: Abnormal Lab Results - Last 24 Hours (Table) 10/01/21 Range/Units 05:19 WBC 18.05 H (4.50-10.00) X 10*3/uL RBC 3.99 L (4.10-5.20) X 10*6/uL Immature Gran # 0.09 H (0.00-0.04) X 10*3/uL Neutrophils # 15.39 H (1.80-7.70) X 10*3/uL Monocytes # 1.24 H (0.20-1.00) X 10*3/uL Eosinophils # 0 L (0.04-0.35) X 10*3/uL
[2021-10-01] MEDS ORDERED: METOCLOPRAMIDE 5 MG/ML 2 ML VIAL IVP PRN (21:18)
[2021-10-01] MEDS: amLODIPine 5 MG TAB PO SCH (21:29)
[2021-10-01] MEDS: lisinopriL 20 MG TAB PO SCH (21:29)
[2021-10-02] MEDS: HYDROmorphone 1 MG/ML 1 ML SYRINGE IVP PRN (00:56)
[2021-10-02] MEDS: SIMETHICONE 40 MG/0.6 ML DROPS 2,000 MG/30 ML BOTTLE PO SCH ×3 (00:56→13:12)
[2021-10-02] MEDS: HYOSCYAMINE ORAL DROPS 1.875 MG/15 ML BOTTLE PO SCH ×3 (00:56→13:12)
[2021-10-02] MEDS: ONDANSETRON 4 MG/2 ML VIAL IVP SCH ×3 (00:56→13:12)
[2021-10-02] MEDS: 0.9% NACL WITH KCL 20 MEQ/L 1,000 ML IV SCH ×2 (04:33→14:25)
[2021-10-02] MEDS ORDERED: bisacodyL 5 MG TABLET.DR PO PRN (08:00)
[2021-10-02] MEDS: ENOXAPARIN 40 MG/0.4 ML SYRINGE SQ SCH (08:53)
[2021-10-02] MEDS: PANTOPRAZOLE 40 MG/10 ML VIAL IV SCH (08:53)
[2021-10-02] MEDS: LACTATED RINGERS 1,000 ML IV SCH (09:07)
[2021-10-02] MEDS: ALBUTEROL NEBULIZED 2.5 MG/3 ML INHALATION SCH ×2 (09:14→13:30)
[2021-10-02 09:17] VITALS: RESP 16
[2021-10-02 09:19] LABS: Basophils # (A) 0.06 X 10*3/uL (0.00-0.10); Basophils % (A) 0.4 %; Eosinophils # (A) 0.73 X 10*3/uL (0.04-0.35); Eosinophils % (A) 4.9 %; HCT 37.6 % (37.2-46.3); HGB 11.6 g/dL (12.0-15.0); Lymphocytes # (A) 1.58 X 10*3/uL (0.90-5.00); Lymphocytes % (A) 10.5 %; MCH 29.4 pg (27.0-32.0); MCHC 30.9 g/dL (32.0-37.0); MCV 95.4 fL (80.0-97.0); Mean Platelet Volume 11.5 fL (9.5-12.2); Monocytes # (A) 1.14 X 10*3/uL (0.20-1.00); Monocytes % (A) 7.6 %; Neutrophils # (A) 11.42 X 10*3/uL (1.80-7.70); Neutrophils % (A) 75.9 %; Platelet Count 342 X 10*3/uL (140-440); RBC 3.94 X 10*6/uL (4.10-5.20); RDW 13.8 % (11.5-14.5); WBC 15.03 X 10*3/uL (4.50-10.00)
[2021-10-02 09:22] VITALS: BP 128/84; TEMP 98.5
--- NOTE | 2021-10-02 13:26 | P.DS ---
Providers Date of admission: 09/30/21 11:44 Expected date of discharge: 10/02/21 Attending physician: Kaylin Lucio Primary care physician: Moses [facility] Course: Discharge diagnosis 1. Morbid obesity due to excess calories 2. Body mass index of 41.8, initial to 39.9 3. Gastroesophageal reflux disease 4. Hypertensive heart disease 5. Transverse myelitis 6. Chronic kidney disease, stage 2 7. Osteoarthritis bilateral feet 8. Osteoarthritis of the ankle, right. 9. Hypertensive heart disease 10. Hiatal hernia. 11. Hypertriglyceridemia 12. Leukocytosis 13. Anemia 14. Elevated selenium 15. Status adjustable gastric band removal 16. Chronic self-catheterization Hospital course Lindsey Celaya is a 50-year-old female with lifelong morbid obesity. She has prior history of an adjustable gastric band with removal. As a result of her morbid obesity, she has developed hypertensive heart disease and osteoarthritis of the bilateral feet and ankle. Patient is status post Robotic assisted da Lashell Xi laparoscopic Darya-en-Y gastric bypass. Patient tolerated surgery well. She is tolerating bariatric clear liquid diet. Denies any difficulty with swallowing. Her pain is controlled. She is having flatus. She is up and ambulating. She is afebrile. She is stable for discharge. Physician Stave Cutter note has been reviewed by physician. Signing provider agrees with the documented findings, assessment, and plan of care. Patient Condition at Discharge: Stable Plan - Discharge Summary Discharge Rx Participant: Yes New Discharge Prescriptions: New bisacodyL [Dulcolax] 5 mg PO DAILY PRN #10 tab PRN Reason: Constipation Simethicone 40 mg/0.6 ml Drops [Mylicon Drops] 40 mg PO PCHS PRN #30 ml PRN Reason: Gas Ondansetron Odt [Zofran Odt] 4 mg PO Q8HR PRN #9 tab PRN Reason: Nausea Acetaminophen Oral Susp [Tylenol] 1,000 mg PO Q6H #400 ml Scopolamine 1.5MG/72Hr Patch [TransDerm Scop] 1 patch TRANSDERM Q72H patch Continue Lisinopril [Prinivil] 40 mg PO HS Esomeprazole Magnesium [NexIUM] 20 mg PO HS amLODIPine [Norvasc] 5 mg PO HS No Action Multivitamins, Thera [Multivitamin (formulary)] 1 tab PO DAILY Discharge Medication List Esomeprazole Magnesium [NexIUM] 20 mg PO HS 01/09/21 [History] Lisinopril [Prinivil] 40 mg PO HS 01/09/21 [History] Multivitamins, Thera [Multivitamin (formulary)] 1 tab PO DAILY 01/09/21 [History] amLODIPine [Norvasc] 5 mg PO HS 03/13/21 [History] Acetaminophen Oral Susp [Tylenol] 1,000 mg PO Q6H #400 ml 10/02/21 [Rx] Ondansetron Odt [Zofran Odt] 4 mg PO Q8HR PRN #9 tab 10/02/21 [Rx] Scopolamine 1.5MG/72Hr Patch [TransDerm Scop] 1 patch TRANSDERM Q72H patch 10/02/21 [Rx] Simethicone 40 mg/0.6 ml Drops [Mylicon Drops] 40 mg PO PCHS PRN #30 ml 10/02/21 [Rx] bisacodyL [Dulcolax] 5 mg PO DAILY PRN #10 tab 10/02/21 [Rx] Follow up [facility]ment(s[facility] [facility] [place] [place] [facility] [place] Activity/Diet/Wound Care/Special Instructions: Wear abdominal binder at all times for comfort. No lifting over 4 pounds in 4 weeks You May shower. No bath tub soaks for two weeks Use ice along incisions for the today to prevent swelling. No straws or carbonated beverages Open, cut or crush all pills to the size smaller than a tic tac Hold taking vitamins until seen by surgeon at follow-up appointment Continue scopolamine patch for the next 48 hours Discharge Disposition: HOME SELF-CARE
[2021-10-02 13:39] VITALS: PULSE 82
== END 2021-10-02 15:02 | disposition home or self-care (01) | DRG 620 ==
LOC: 2ORMAIN 11:44 → 4SSUR 18:26
PROVIDERS: ADMIT Surgery Plastic and Reconstructive Surgery; ATTEND Surgery Plastic and Reconstructive Surgery
PROC: 0DCA8ZZ Extirpation of Matter from Jejunum, Via Natural or Artificial Opening Endoscopic (ICD-10-PCS; 2021-09-30)
PROC: 0D164ZA Bypass Stomach to Jejunum, Percutaneous Endoscopic Approach (ICD-10-PCS; principal; 2021-09-30 13:20)
PROC: 8E0W4CZ Robotic Assisted Procedure of Trunk Region, Percutaneous Endoscopic Approach (ICD-10-PCS; 2021-09-30 13:20)
DX: E66.01 Morbid (severe) obesity due to excess calories (principal); G37.3 Acute transverse myelitis in demyelinating disease of central nervous system; D64.9 Anemia, unspecified; D72.829 Elevated white blood cell count, unspecified; E78.1 Pure hyperglyceridemia; I13.10 Hypertensive heart and chronic kidney disease without heart failure, with stage 1 through stage 4 chronic kidney disease, or unspecified chronic kidney disease; K21.9 Gastro-esophageal reflux disease without esophagitis; K44.9 Diaphragmatic hernia without obstruction or gangrene; K66.0 Peritoneal adhesions (postprocedural) (postinfection); M19.071 Primary osteoarthritis, right ankle and foot; M19.072 Primary osteoarthritis, left ankle and foot; N18.2 Chronic kidney disease, stage 2 (mild); Z68.41 Body mass index [BMI] 40.0-44.9, adult; H54.7 Unspecified visual loss; M19.90 Unspecified osteoarthritis, unspecified site
CPT/HCPCS: 74240; 80051; 82310; 82565; 83735; 84100; 84520; 85025; 94640; 94760

== ENCOUNTER → 2021-10-04 | Outpatient (CLI) | payer BC ==
[2021-10-04] MEDS: SODIUM CHLORIDE 0.9% 1,000 ML IV SCH ×2 (10:00→11:33)
[2021-10-04 10:08] VITALS: BP 134/80; PULSE 83; RESP 14; TEMP 98
== END ==
LOC: PROCWHC3 10:05
PROVIDERS: ATTEND Surgery Plastic and Reconstructive Surgery
DX: E86.0 Dehydration (principal); Z88.7 Allergy status to serum and vaccine
CPT/HCPCS: 96360; 96361

== ENCOUNTER → 2021-10-08 | Outpatient (CLI) | payer BC ==
[~2021-10-08] MED LIST changes: -CHLORHEXIDINE GLUCONATE 15 ML CUP MUCOUS MEM PRN; -DEXAMETHASONE SOD PHOSPHATE 4 MG/ML 1 ML VIAL IV ONE; -LIDOCAINE 1% (10MG/ML) FOR IV START INTRADERMA PRN; -MIDAZOLAM 2 MG/2 ML VIAL IV PRN; -ONDANSETRON 4 MG/2 ML VIAL IVP ONE; -PANTOPRAZOLE 40 MG/10 ML VIAL IVP PRN; +SODIUM CHLORIDE 0.9% 500 ML 500 ML in EMPTY BAG 1 BAG IV PRN
[2021-10-08 13:19] VITALS: BP 172/66; PULSE 103; RESP 16; TEMP 98.1
[2021-10-08] MEDS: SODIUM CHLORIDE 0.9% 1,000 ML IV NR ×2 (13:20→14:19)
== END ==
LOC: PROCWHC3 13:04
PROVIDERS: ATTEND Surgery Plastic and Reconstructive Surgery
DX: E86.0 Dehydration (principal); Z88.7 Allergy status to serum and vaccine
CPT/HCPCS: 96360; 96361

== ENCOUNTER → 2021-10-09 | Outpatient (CLI) | payer BC ==
--- NOTE | 2021-10-09 14:32 | P.BASOAP ---
Subjective Progress Note Date: 10/09/21 No dark urine. She has clear urine. Abdominal pain minimal. No nausea. She had protein shake for breakfast. She met with the dietitian. Return to work for 4 weeks. She has billing issues. Assessment/Plan Plan: Date: Initial Weight: 106.141 kg Initial BMI: Current Weight: Current BMI: Type of Surgery: Total Volume in Band: Previous Volume: Volume Removed: Volume Added: Band Size:
[2021-10-09 15:32] VITALS: BMI 37.4
[2021-10-10 09:42] VITALS: BP 138/82; PULSE 76; TEMP 97.5
== END ==
LOC: BARWHC3 13:47
PROVIDERS: ATTEND Surgery Plastic and Reconstructive Surgery
DX: E66.01 Morbid (severe) obesity due to excess calories (principal); Z71.3 Dietary counseling and surveillance; Z68.37 Body mass index [BMI] 37.0-37.9, adult; Z98.84 Bariatric surgery status; Z88.7 Allergy status to serum and vaccine
CPT/HCPCS: 97803; 99211

== ENCOUNTER → 2021-12-25 | Outpatient (CLI) | payer BC ==
[2021-12-25 13:13] VITALS: BP 165/103; PULSE 90; TEMP 98.2; BMI 32.8
--- NOTE | 2021-12-25 14:11 | P.BASOAP ---
Subjective Progress Note Date: 12/25/21 DATE OF SERVICE: 12/25/2021 CHIEF COMPLAINT: Status post gastric bypass HISTORY OF PRESENT ILLNESS: Lindsey Celaya is a 50-year-old female status post gastric bypass, 09/30/2021. She is less than 3 months out. She is clinically doing extremely well. She is under 200 pounds. She denies abdominal pain. No epigastric pain. She is tolerating diet. No dysphagia. Otherwise she is doing well. At height of 5 feet 4.25 inches, her ideal body weight is 144 pounds. Her highest weight was 245 pounds, BMI 41.8. She comes in 193 pounds from 204 pounds, 2 months ago. She has lost 12 pounds in 2 months. Her body mass index is 32.9. She is 49 pounds overweight. Lifetime weight loss 52 pounds. Lifetime percent excess weight loss of 52 %. PHYSICAL EXAM: VITAL SIGNS: Height 5 foot 4.25 inches, weight 193 pounds. BMI 32.9 Vital Signs Temp 98.2 F 12/25/21 13:12 Pulse 90 12/25/21 13:12 Resp BP 165/103 12/25/21 13:12 Pulse Ox GENERAL: Well-developed in no acute distress. HEENT: No scleral icterus. Extraocular movements grossly intact. Hears conversational speech. No nasal drainage. NECK: Supple without lymphadenopathy. CHEST: Nonlabored respirations with equal bilateral excursions. CARDIOVASCULAR: Regular rate and regular rhythm. Distal 2+ pulses. ABDOMEN: Obese, soft, nontender, nondistended. No hernias on exam. MUSCULOSKELETAL: No clubbing, cyanosis. NEURO: No focal or lateralizing signs. Cranial nerves 2 through 12 grossly within normal limits. PSYCH: Appropriate affect. Alert and oriented to person, place and time. SKIN: Good skin turgor. Well perfused. LABS: Reviewed. Vitamin A low. ASSESSMENT: 1. Morbid obesity due to excess calories 2. Body mass index of 41.8, initial to 32.9 3. Gastroesophageal reflux disease 4. Hypertensive heart disease 5. Transverse myelitis 6. Chronic kidney disease, stage 2 7. Osteoarthritis bilateral feet 8. Osteoarthritis of the ankle, right. 9. Hypertensive heart disease 10. Hiatal hernia. 11. Hypertriglyceridemia 12. Leukocytosis 13. Anemia 14. Elevated selenium 15. Status adjustable gastric band removal 16. Status post lysis of adhesions 17. Status post gastric bypass 18. Vitamin A deficiency PLAN: 1. Vitamin D supplement advised at 50,000 units daily 2. Follow-up 3 months postop. Objective - Vital Signs Vital signs: Vital Signs Temp 98.2 F 12/25/21 13:12 Pulse 90 12/25/21 13:12 Resp BP 165/103 12/25/21 13:12 Pulse Ox Intake & Output 12/24/21 12/25/21 12/25/21 18:59 06:59 18:59 Weight 87.543 kg - Labs CBC & Chem 7: 12/25/21 14:14 12/25/21 14:14 Assessment/Plan Plan: Date: 12/25/21 Initial Weight: 106.141 kg Initial BMI: 39.8 Current Weight: 87.543 kg Current BMI: 32.8 Type of Surgery: Total Volume in Band: Previous Volume: Volume Removed: Volume Added: Band Size:
[2021-12-25 19:01] LABS: HCT 43.6 % (37.2-46.3); HGB 13.5 g/dL (12.0-15.0); MCH 28.8 pg (27.0-32.0); MCV 93.2 fL (80.0-97.0); Mean Platelet Volume 11.2 fL (9.5-12.2); NRBC Per 100 WBC 0 /100 WBCS (0.0-0.0); Platelet Count 389 X 10*3/uL (140-440); RBC 4.68 X 10*6/uL (4.10-5.20); RDW 13.2 % (11.5-14.5); WBC 9.47 X 10*3/uL (4.50-10.00)
[2021-12-25 23:43] LABS: INR 0.96 (0.90-1.11); Prothrombin Time 10.6 sec (9.9-11.9)
[2021-12-26 00:19] LABS: % Iron Saturation 15.06 (12.00-45.00); ALT 135 U/L (8-44); AST 112 U/L (13-35); African American GFR (CKD) 109.6 (60.0-200.0); Albumin 4.6 g/dL (3.8-4.9); Albumin/Globulin Ratio 1.49 (1.60-3.17); Alkaline Phosphatase 255 U/L (41-126); BUN/Creat Ratio 15.92 Ratio (12.00-20.00); Blood Urea Nitrogen 11.7 mg/dL (9.0-27.0); Calcium 9.9 mg/dL (8.7-10.3); Carbon Dioxide 16.4 mmol/L (20.0-27.5); Chloride 101 mmol/L (96-109); Ferritin 85.8 ng/mL (10.0-291.0); Globulin 3.1 g/dL (1.6-3.3); Glucose 79 mg/dL (70-110); Iron 64 ug/dL (50-170); Magnesium 2.2 mg/dL (1.5-2.4); Non-African American GFR(CKD) 94.6 (60.0-200.0); Phosphorus 4.5 mg/dL (2.4-5.1); Potassium 4.4 mmol/L (3.5-5.5); Sodium 140 mmol/L (135-145); Total Iron Binding Capacity 424 ug/dL (228-460); Total Protein 7.6 g/dL (6.2-8.2)
[2021-12-26 01:38] LABS: Chol/HDL Ratio 2.59 Ratio; LDL Cholesterol,Calculated 78.5 mg/dL (0.0-131.0); Prealbumin 18.2 mg/dL (18.0-42.0); VLDL Calculation 14.32 mg/dL (5.00-40.00)
[2021-12-26 11:56] LABS: Zinc, Serum 89 ug/dL (60-130)
[2021-12-27 06:56] LABS: Vitamin A 43 ug/dL (38-106)
[2022-01-01 12:41] LABS: Vit B1(Thiamine) 84 ug/L (38-122)
[2022-01-01 13:18] LABS: Selenium 236 mcg/L (63-160)
== END ==
LOC: BARWHC3 12:41
PROVIDERS: ATTEND Surgery Plastic and Reconstructive Surgery
DX: E66.01 Morbid (severe) obesity due to excess calories (principal); D50.8 Other iron deficiency anemias; E44.0 Moderate protein-calorie malnutrition; E45 Retarded development following protein-calorie malnutrition; E55.9 Vitamin D deficiency, unspecified; K74.1 Hepatic sclerosis; T56.894A Toxic effect of other metals, undetermined, initial encounter; K50.90 Crohn's disease, unspecified, without complications; Z68.32 Body mass index [BMI] 32.0-32.9, adult; K21.9 Gastro-esophageal reflux disease without esophagitis; I11.0 Hypertensive heart disease with heart failure; G37.3 Acute transverse myelitis in demyelinating disease of central nervous system; I13.10 Hypertensive heart and chronic kidney disease without heart failure, with stage 1 through stage 4 chronic kidney disease, or unspecified chronic kidney disease; N18.2 Chronic kidney disease, stage 2 (mild); M19.071 Primary osteoarthritis, right ankle and foot; M19.072 Primary osteoarthritis, left ankle and foot; K44.9 Diaphragmatic hernia without obstruction or gangrene; E78.1 Pure hyperglyceridemia; D72.829 Elevated white blood cell count, unspecified; D64.9 Anemia, unspecified; R79.0 Abnormal level of blood mineral; Z98.84 Bariatric surgery status; Z98.890 Other specified postprocedural states; E50.9 Vitamin A deficiency, unspecified; Z71.3 Dietary counseling and surveillance
CPT/HCPCS: 80053; 80061; 82306; 82525; 82607; 82728; 82746; 83036; 83540; 83550; 83735; 83970; 84100; 84134; 84255; 84425; 84443; 84590; 84630; 85027; 85610; 85730; 97803; 99211

== ENCOUNTER → 2022-04-04 | Outpatient (CLI) | payer BC ==
[2022-04-04 14:28] LABS: INR 0.9 (<1.2); Prothrombin Time 9.8 sec (9.0-12.0)
[2022-04-04 18:26] LABS: HCT 39.6 % (37.2-46.3); HGB 12.4 g/dL (12.0-15.0); MCH 29.2 pg (27.0-32.0); MCHC 31.3 g/dL (32.0-37.0); MCV 93.2 fL (80.0-97.0); Mean Platelet Volume 11.6 fL (9.5-12.2); NRBC Per 100 WBC 0 /100 WBCS (0.0-0.0); Platelet Count 357 X 10*3/uL (140-440); RBC 4.25 X 10*6/uL (4.10-5.20); RDW 14.3 % (11.5-14.5); WBC 9.79 X 10*3/uL (4.50-10.00)
[2022-04-04 19:09] LABS: Chol/HDL Ratio 2.56 Ratio; LDL Cholesterol,Calculated 81.8 mg/dL (0.0-131.0); Prealbumin 19.2 mg/dL (18.0-42.0); VLDL Calculation 16.38 mg/dL (5.00-40.00)
[2022-04-04 19:25] LABS: % Iron Saturation 17.13 (12.00-45.00); ALT 54 U/L (8-44); AST 42 U/L (13-35); Albumin 4.5 g/dL (3.8-4.9); Albumin/Globulin Ratio 1.91 (1.60-3.17); Alkaline Phosphatase 178 U/L (41-126); BUN/Creat Ratio 24.41 Ratio (12.00-20.00); Blood Urea Nitrogen 14.4 mg/dL (9.0-27.0); Calcium 9.7 mg/dL (8.7-10.3); Carbon Dioxide 24.6 mmol/L (20.0-27.5); Chloride 105 mmol/L (96-109); Ferritin 68.1 ng/mL (10.0-291.0); Globulin 2.4 g/dL (1.6-3.3); Glucose 86 mg/dL (70-110); Iron 70 ug/dL (50-170); Magnesium 2.1 mg/dL (1.5-2.4); Non-African American GFR(CKD) 106.1 (60.0-200.0); Phosphorus 4.6 mg/dL (2.4-5.1); Potassium 4.1 mmol/L (3.5-5.5); Sodium 142 mmol/L (135-145); Total Iron Binding Capacity 407 ug/dL (228-460); Total Protein 6.9 g/dL (6.2-8.2)
== END | disposition home or self-care (01) ==
LOC: LABWHC1 13:07
PROVIDERS: ATTEND Surgery Plastic and Reconstructive Surgery
DX: D50.8 Other iron deficiency anemias (principal); K91.2 Postsurgical malabsorption, not elsewhere classified; E66.01 Morbid (severe) obesity due to excess calories; E44.0 Moderate protein-calorie malnutrition; E44.1 Mild protein-calorie malnutrition; E45 Retarded development following protein-calorie malnutrition; E55.9 Vitamin D deficiency, unspecified; K74.1 Hepatic sclerosis; N19 Unspecified kidney failure; T56.894A Toxic effect of other metals, undetermined, initial encounter; K50.90 Crohn's disease, unspecified, without complications
CPT/HCPCS: 36415; 80053; 80061; 82306; 82525; 82607; 82728; 82746; 83036; 83540; 83550; 83735; 83970; 84100; 84134; 84255; 84425; 84443; 84590; 84630; 85027; 85610; 85730